=== PATIENT | male | born 1950 | race Asian ===

== ENCOUNTER 2018-02-10 19:08 | Inpatient (IN) | payer MEDICAID, MEDICARE ==
[~2018-02-10] VITALS: Ht 165.1 cm; Wt 88.9 kg
[2018-02-10] MEDS: NACL 0.9% 1,000 ML IV SCH (03:50)
--- NOTE | 2018-02-10 19:30 | NUR ---
PATIENT BIB BLS TO ER BED 3.
[2018-02-10 19:31] VITALS: BP 105/56
--- NOTE | 2018-02-10 19:32 | NUR ---
PATIENT IS A 67 Y/O MALE BIB BLS WHO PRESENTS TO THE ED C/O ALTERED MENTAL STATUS. PER [facility], PT WAS RECEIVING A BLOOD TRANSFUSION WHEN PT BECAME ALTERED AND STARTED SHIVERING. PT APPEARS TO BE IN 5/10 ACHING ABD PAIN THAT DOES NOT RADIATE. PT DENIES CP, SOB, DAUGHTER REPORTS DIARRHEA DENIES NAUSEA/VOMITING. PT AAOX3, RR EVEN/UNLABORED. PT REPOSITIONED FOR COMFORT, BED IN LOWEST POSITION. ER MD DR. AGUILAR NOTIFIED. WILL CONTINUE TO MONITOR. Addendum: 02/11/18 at 0117 by MEDDCV PATIENT IS A 67 Y/O MALE BIB BLS WHO PRESENTS TO THE ED C/O ALTERED MENTAL STATUS. PER [facility], PT WAS RECEIVING A BLOOD TRANSFUSION WHEN PT BECAME ALTERED AND STARTED SHIVERING. PT APPEARS TO BE IN 5/10 ACHING ABD PAIN THAT DOES NOT RADIATE. PT DIAPHORETIC. PT DENIES CP, SOB, DAUGHTER REPORTS DIARRHEA DENIES NAUSEA/VOMITING. PT AAOX3, RR EVEN/UNLABORED. PT REPOSITIONED FOR COMFORT, BED IN LOWEST POSITION. ER MD DR. AGUILAR NOTIFIED. WILL CONTINUE TO MONITOR.
[2018-02-10] MEDS ORDERED: TENO300T2 PO (19:45)
[2018-02-10] MEDS ORDERED: BISA5ECT43 PR (19:45)
[2018-02-10] MEDS ORDERED: PANT40EC PO (19:45)
[2018-02-10] MEDS ORDERED: SUCR1TAB35 PO (19:45)
[2018-02-10] MEDS ORDERED: ZYL300 PO (19:45)
[2018-02-10] MEDS ORDERED: BETH25TA47 PO (19:45)
[2018-02-10] MEDS ORDERED: TAMS0.4C96 PO (19:45)
[2018-02-10] MEDS ORDERED: NACL 0.9% 1,000 ML IV ONE ×3 (20:15→22:05)
--- NOTE | 2018-02-10 20:55 | NUR ---
communications tech at bedside.
[2018-02-10] MEDS ORDERED: VANCOMYCIN 1,000 MG in DEXTROSE 5% 250 ML IV ONE (21:10)
[2018-02-10] MEDS ORDERED: LEVOFLOXACIN 750 MG/D5W PREMIX 150 ML IV ONE (21:10)
[2018-02-10] MEDS ORDERED: VANCOMYCIN 1,000 MG VIAL ONE (21:14)
--- NOTE | 2018-02-10 21:32 | NUR ---
Dr. Burgos and RN at bedside for insertion of central line.
--- NOTE | 2018-02-10 22:00 | NUR ---
ACCOMPANIED PT TO CT WITH TECH.
--- NOTE | 2018-02-10 22:15 | NUR ---
NOTED RECTAL TEMP OF 95.2. PER DR. AGUILAR INITIATED AMANDA CHOE.
[2018-02-10 22:23] LABS: BASOPHILS # (AUTO) 0.6 K/uL (0.00-0.22); HEMATOCRIT 24.5 % (36-52); HEMOGLOBIN 7.7 g/dL (12.0-18.0); LYMPHOCYTES # (AUTO) 2.4 K/uL (2.0-11.5); MEAN CORPUSCULAR HEMOGLOBIN 29 pg (27-31); MEAN CORPUSCULAR HGB CONC 31 g/dL (33-37); MONOCYTES # (AUTO) 0.1 K/uL (0.8-1.0); NEUTROPHILS # (AUTO) 4.4 K/uL (1.8-7.7); PLATELET COUNT (AUTO) 32 K/uL (140-450); RED BLOOD CELL COUNT(AUTO) 2.64 MIL/uL (4.20-6.10); RED CELL DISTRIBUTION WIDTH 15.9 % (11.6-13.7); WHITE BLOOD COUNT (AUTO) 7.5 K/uL (4.8-10.8)
[2018-02-10 22:27] LABS: ALBUMIN 2.3 g/dL (3.4-5.0); ANION GAP 25.4 (8-16); CARBON DIOXIDE 13.6 mmol/L (21-32); CREATININE 2.3 mg/dL (0.7-1.3); TOTAL BILIRUBIN 0.7 mg/dL (0.0-1.0)
[2018-02-10] MEDS ORDERED: NOREPINEPHRINE 4 MG in DEXTROSE 5% 250 ML IV ONE (23:10)
[2018-02-10] MEDS ORDERED: PIPERACILLIN/TAZOBACTAM 3.375 GM in DEXTROSE 5% 50 ML IV ONE (23:20)
[2018-02-10] MEDS ORDERED: NOREPINEPHRINE 4 MG/4 ML VIAL IV ONE (23:21)
--- NOTE | 2018-02-10 23:30 | NUR ---
STARTED LEVOPHED AT 5MCG/MIN.
[2018-02-10] MEDS ORDERED: PIPERACILLIN/TAZOBACTAM 3.375 GM VIAL IV ONE (23:42)
[2018-02-10] MEDS ORDERED: ONDANSETRON 4 MG/2 ML VIAL IM/IVP PRN (23:45)
[2018-02-10] MEDS ORDERED: ACETAMINOPHEN 325 MG TAB PO PRN (23:45)
[2018-02-10] MEDS ORDERED: DOCUSATE SODIUM 100 MG GELCAP PO PRN (23:45)
[2018-02-10] MEDS ORDERED: HYDROcodone/APAP 7.5/325 MG 1 TAB PO PRN (23:45)
--- NOTE | 2018-02-10 23:55 | NUR ---
LEVOPHED INCREASED TO 7 MCG/MIN.
[2018-02-11] VITALS (99 sets, daily range): BP systolic 64–163; BP diastolic 20–108
--- NOTE | 2018-02-11 00:05 | NUR ---
LEVOPHED INCREASED TO 9MCG/MIN.
[2018-02-11 00:23] LABS: PROTHROMBIN TIME 12.7 secs (10.8-13.4)
--- NOTE | 2018-02-11 00:25 | NUR ---
LEVOPHED INCREASED TO 11 MCG/MIN.
--- NOTE | 2018-02-11 00:30 | NUR ---
LEVOPHED INCREASED TO 14 MCG/MIN.
--- NOTE | 2018-02-11 00:35 | NUR ---
LEVOPHED DECREASED TO 11 MCG/MIN.
--- NOTE | 2018-02-11 00:38 | NUR ---
Patient will be admitted to care of DR. COATES. Admited to ICU. Will go to room 2. Belongings list completed. Report to MASON RIVERA.
[2018-02-11 00:48] LABS: APPEARANCE,URINE TURBID (CLEAR); BILIRUBIN,URINE NEGATIVE (NEGATIVE); BLOOD, URINE 3+ (NEGATIVE); COLOR,URINE RED (YELLOW); LEUKOCYTE ESTERASE ,URINE 3+ (NEGATIVE); NITRITE, URINE NEGATIVE (NEGATIVE); UGLUCOSE NEGATIVE (NEGATIVE)
[2018-02-11 00:50] LABS: RBC,URINE TOO NUMEROUS TO COUN /HPF (0-5); WBC,URINE TOO MANY TO COUNT /HPF (0-5)
--- NOTE | 2018-02-11 01:00 | NUR ---
PT ARRIVED IN THE UNIT AT 0040 VIA GURNEY. PT AWAKE. ABLE TO FOLLOW SIMPLE COMMANDS. PT TEMPERATURE AT 95.0; PT CAME IN WITH BEAR HUGGER. LUNG SOUNDS CLEAR. PT ON OXYGEN AT 3L/MIN VIA NC. NO SIGNS OF DISTRESS NOTED. S1+S2 HEARD. PULSES ARE PALPABLE IN ALL EXTREMITIES. PT HAS LEVOPHED DRIP RUNNING AT 11MCG. ABDOMEN ROUND, SOFT AND NONDISTENDED. PT HAS DIAPER AND WAS SOILED. PT HAD A BM. NO URINE NOTED ON DIAPER. PT SKIN IS INTACT BUT HAS MULTIPLE BRUISES ALL OVER THE UPPER AND LOWER EXTREMITIES. PT HAS LEFT SUBCLAVIAN CENTRAL LINE. DRESSING WAS CHANGED. LINE PATENT, INTACT, AND ASYMPTOMATIC. BED AT LOW POSSIBLE POSITION. CALL LIGHT WITHIN REACH. ALL SAFETY PRECAUTIONS ARE IN PLACE.
[2018-02-11 01:03] LABS: MAGNESIUM 3.9 mg/dL (1.8-2.4); PHOSPHORUS 4.1 mg/dL (2.5-4.9); THYROID STIMULATING HORMONE 2.12 uIU/mL (0.34-3.74)
[2018-02-11] MEDS ORDERED: DEXTROSE 50% 50 ML SYR IVP PRN (01:05)
[2018-02-11] MEDS ORDERED: RIFAXIMIN 550 MG TAB PO SCH (01:10)
[2018-02-11] MEDS: LACTULOSE 20 GM/30 ML UDC PO SCH ×2 (01:10→08:51)
[2018-02-11] MEDS ORDERED: CRAN450C PO (01:21)
[2018-02-11] MEDS ORDERED: LACT1CAP72 PO (01:21)
[2018-02-11] MEDS ORDERED: IBRU140C PO (01:21)
[2018-02-11] MEDS ORDERED: ASCO500T93 PO (01:21)
--- NOTE | 2018-02-11 01:30 | NUR ---
FAMILY AT BEDSIDE, VERY CONCERNED AND ASKING HANDFUL OF QUESTIONS. DR. ARRIAGA AT BEDSIDE.
--- NOTE | 2018-02-11 01:35 | NUR ---
ASKED THE FAMILY OF PT FOR INFORMATION REGARDING PT'S HISTORY. PER DAUGHTER, SHE WOULD LIKE TO JUST GIVE THE INFORMATION LATER.
[2018-02-11] MEDS: MORPHINE SULFATE 2 MG/ML SYR IVP PRN ×2 (01:44→21:22)
--- NOTE | 2018-02-11 01:50 | NUR ---
ASKED THE PT'S DAUGHTER AGAIN REGARDING PROVIDING INFORMATION, PT'S DAUGHTER SAID "I DON'T WANNA DO THAT RIGHT NOW". EXPLAINED TO PT'S DAUGHTER THE IMPORTANCE OF HAVING THE HISTORY OF PT, BUT STILL REFUSE.
[2018-02-11 01:55] LABS: CHOL/HDL RATIO 4.1 (1-4.5)
[2018-02-11] MEDS ORDERED: ALBUTEROL SULFATE/IPRATROPIU 3 ML SOL IH PRN (02:05)
--- NOTE | 2018-02-11 02:30 | NUR ---
CALLED TO ASSIST ASHLEY GTZ AND DR. AGUILAR FOR INTUBATION. DR. AGUILAR INTUBATED WITH 7.5 E.T.T. AT 27CM LIP. BREATH SOUNDS EQUAL BUT DECREASED AT LEFT, PLACED PT ON VENTILATOR AC-14, VT 500, FIO2-100% PEER +5. POST CHEST X-RAY, REPOSITIONED E.T.T. TO 25CM@LIP, IMPROVED AERATION. SPUTUM WAS COLLECTED AND SENT. ABG WAS DONE AND RESULTS WERE CALLED IN TO DR. ARRIAGA
--- NOTE | 2018-02-11 02:30 | NUR ---
DR. AGUILAR SUCCESSFULLY INTUBATED PT AT BEDSIDE. WILL FOLLOW-UP WITH ANY OTHER ORDERS.
[2018-02-11] MEDS ORDERED: DIAZEPAM PFS 10 MG/2 ML SYR ONE (02:31)
[2018-02-11] MEDS ORDERED: DIAZEPAM PFS 10 MG/2 ML SYR IVP PRN (02:35)
[2018-02-11] MEDS ORDERED: DOBUTamine 500 MG/D5W PREMIX 250 ML IV SCH (02:35)
[2018-02-11] MEDS ORDERED: ETOMIDATE 20 MG/10 ML VIAL IVP ONE (02:45)
[2018-02-11] MEDS ORDERED: DIAZEPAM PFS 10 MG/2 ML SYR IVP ONE (02:45)
[2018-02-11] MEDS ORDERED: EPINEPHrine PFS 0.1 MG/ML SYR IVP ONE (02:45)
[2018-02-11] MEDS ORDERED: DOBUTamine 250 MG/D5W PREMIX 250 ML IV SCH (02:45)
[2018-02-11] MEDS ORDERED: SODIUM BICARBONATE 8.4% PFS 50 MEQ/50 ML SYR IVP ONE ×3 (02:45)
[2018-02-11] MEDS ORDERED: NOREPINEPHRINE 4 MG/4 ML VIAL IV ONE ×2 (03:50→19:59)
[2018-02-11] MEDS: NOREPINEPHRINE 8 MG in DEXTROSE 5% 250 ML IV PRN ×4 (03:59→20:48)
--- NOTE | 2018-02-11 04:15 | NUR ---
QUESADA CATHETER SUCCESSFULLY INSERTED. PT HAD VERY DARK TIFFANIE URINE, WITH SEDIMENTS AND HEMATURIA. WILL CONTINUE TO MONITOR PT FOR URINARY OUTPUT.
[2018-02-11] MEDS ORDERED: PHENYLEPHRINE 10 MG/ML VIAL ONE ×2 (05:12→05:13)
[2018-02-11] MEDS: PHENYLEPHRINE 40 MG in NACL 0.9% 250 ML IV PRN ×4 (05:16→22:05)
[2018-02-11] MEDS ORDERED: NACL 0.9% 1,000 ML IV ONE ×2 (06:00)
[2018-02-11] MEDS ORDERED: PIPERACILLIN/TAZOBACTAM 3.375 GM VIAL IV ONE (06:29)
[2018-02-11] MEDS ORDERED: VANCOMYCIN PER PHARMACY MC PRN (06:30)
--- NOTE | 2018-02-11 06:30 | NUR ---
DR. MAX AT BEDSIDE TO SEE PT. WILL FOLLOW-UP WITH ANY NEW ORDERS.
[2018-02-11] MEDS: PIPER/TAZO 3.375GM/D5W PREMIX 50 ML IV SCH ×3 (06:41→20:49)
[2018-02-11] MEDS ORDERED: HYDROCORTISONE NA SUCC 100 MG/2 ML VIAL ONE (06:55)
--- NOTE | 2018-02-11 06:55 | NUR ---
DR. COLBERT AT BEDSIDE TO SEE PT. INFORMED DR. COLBERT REGARDING PT'S CONDITION.
[2018-02-11] MEDS ORDERED: VANCOMYCIN 1GM/DEXT 5% PREMIX 200 ML IV SCH ×2 (07:00→22:00)
[2018-02-11] MEDS ORDERED: HYDROCORTISONE NA SUCC 100 MG/2 ML VIAL IV ONE (07:00)
[2018-02-11 07:07] LABS: RED CELL DISTRIBUTION WIDTH 15.7 % (11.6-13.7)
[2018-02-11] MEDS: BLOOD GLUCOSE MONITORING 1 DEV DEV FS SCH ×4 (07:17→21:05)
--- NOTE | 2018-02-11 07:17 | NUR ---
RECEIVED INTUBATED PT WITH 7.5 ETT SECURED @25 TEETH/GUMS ON VENT. SETTINGS AC 14, VT 500, PEEP 5 AND FIO2 100%. PT IS TACHYPNEIC AT THIS TIME. PT SUCTIONED OBTAINED SMALL AMOUNT OF THICK BLOODY SECRETIONS, AIRWAY IS PATENT AND ETT IS SECURE. ETT PLACEMENT CONFIRMED ON CXR AND BILATERAL B.S. VENT IS PLUGGED INTO RED OUTLET WITH ALARMS ON AND FUNCTIONING. WILL CONTINUE TO MONITOR.
[2018-02-11 07:20] LABS: MEAN CORPUSCULAR HEMOGLOBIN 31 pg (27-31); MEAN CORPUSCULAR HGB CONC 33 g/dL (33-37); MEAN CORPUSCULAR VOLUME 92.8 fL (80-94); RED BLOOD CELL COUNT(AUTO) 1.91 MIL/uL (4.20-6.10); WHITE BLOOD COUNT (AUTO) 5.8 K/uL (4.8-10.8)
--- NOTE | 2018-02-11 07:25 | NUR ---
REPORT GIVEN TO MORNING RN FOR CONTINUITY OF CARE. STILL MONITORING PT'S BLOOD PRESSURE.
[2018-02-11 07:37] LABS: ANION GAP 24.5 (8-16); CARBON DIOXIDE 14.2 mmol/L (21-32); CREATININE 2.4 mg/dL (0.7-1.3); POTASSIUM 3.7 mmol/L (3.5-5.1)
--- NOTE | 2018-02-11 07:40 | NUR ---
RECEIVED REPORT FROM NICOLE CUEVAS. PT IS INTUBATED. PT HAS BEAR HUGGER IN PLACE ON HIGHEST SETTING FOR HYPOTHERMIC TEMPERATURE. TEMP AT 0700 IS 97.3. PT IS NPO. PTS SKIN IS INTACT BUT HAS BRUISES AND PETECHIA ON UPPER AND LOWER EXTREMITIES. PT IS ON STANDARD PRECAUTION. PT IS NORMAL SINUS RHYTHM ON MONITOR. PT HAS AN OGT, POSITIVE PLACEMENT WAS CHECKED AND 60ML OF DARK BROWN RED FLUID RESIDUAL. PT HAS A QUESADA CATHETER PLACE WITH DARK RED URINE. PT HAS DOBUTAMINE RUNNING 10MCG/KG/MIN WITH ORDERS NOT TO TITRATE, LEVOPHED 30 MCG/KG/MIN (MAX), RANULFO-SYNEPHRINE RUNNING 150MCG/KG/MIN (MAX). ZERO CVP LINE, CURRENT READING IS 2. PT HAS FIXED PUPILS AND NOT RESPONSIVE. PTS ABDOMEN IS FIRM AND BOWEL SOUNDS ARE PRESENT IN ALL QUADRANTS. PT HAS WHEEZING IN LUNG ALL LOBES. PT HAS UPPER EXTREMITY SWELLING, NONPITTING. S1S2 HEARD AT APEX. PTS BED IS IN LOWEST POSITION WITH THE ALARM AND LOCK ON AND PT IS POSITIONED FOR COMFORT, SIDE RAILS ELEVATED. WILL CLOSELY MONITOR PT.
[2018-02-11 07:57] LABS: HEMATOCRIT 17.7 % (36-52); HEMOGLOBIN 5.8 g/dL (12.0-18.0)
[2018-02-11 07:58] LABS: PLATELET COUNT (AUTO) 13 K/uL (140-450)
--- NOTE | 2018-02-11 08:07 | NUR ---
PATIENT HAS BEEN SCREENED AND CATEGORIZED HIGH RISK. PATIENT WILL BE SEEN WITHIN 1-2 DAYS OF ADMISSION. 02/12- [address], [facility]
[2018-02-11] MEDS ORDERED: NACL 0.9% 1,000 ML IV SCH ×2 (08:10→14:05)
--- NOTE | 2018-02-11 08:21 | NUR ---
CALLED LAB FOR PACKED CELL TRANSFUSION SAID WILL CALL BACK US WHEN IT IS READY.
--- NOTE | 2018-02-11 08:40 | NUR ---
DR. COLBERT AND FAMILY AT BEDSIDE. PTS VITALS ARE: BP:81/34 WITH NS BOLUS GIVEN MAP 46 PULSE: 80 SPO2: 100% RESPIRATIONS: 22
[2018-02-11] MEDS ORDERED: VASOPRESSIN 20 UNITS in NACL 0.9% 250 ML IV SCH (08:50)
[2018-02-11] MEDS: LACTOBACILLUS RHAMNOSUS GG 1 EACH CAP PO SCH (08:51)
[2018-02-11] MEDS: TAMSULOSIN 0.4 MG CAP PO SCH (08:51)
[2018-02-11] MEDS: SUCRALFATE 1 GM TAB PO SCH ×4 (08:51→20:49)
[2018-02-11] MEDS: BETHANECHOL 25 MG TAB PO SCH ×3 (08:52→17:21)
[2018-02-11] MEDS: ALLOPURINOL 300 MG TAB PO SCH (08:52)
[2018-02-11] MEDS ORDERED: PANTOPRAZOLE 40 MG INJ VIAL IVP SCH ×2 (09:00→13:40)
[2018-02-11] MEDS ORDERED: PANTOPRAZOLE 40 MG TABEC PO SCH (09:00)
--- NOTE | 2018-02-11 09:00 | NUR ---
UPDATED REGARDING ABG RESULTS.
[2018-02-11] MEDS ORDERED: SODIUM BICARBONATE 8.4% PFS 50 MEQ/50 ML SYR IVP SCH ×2 (09:15→14:30)
[2018-02-11 09:58] LABS: LYMPHOCYTES % (MANUAL) 63 % (20-46); MONOCYTES % (MANUAL) 2 % (5-12)
[2018-02-11] MEDS: NACL 0.9% 1,000 ML IV SCH ×2 (10:07→17:58)
--- NOTE | 2018-02-11 10:30 | NUR ---
PT RESTING IN BED. T 98.4 HR 93 RR 28 SPO2 98 BP 84/56. HAS SPONTANEOUS EYES OPENING, NO WITHDRAWS TO PAIN. DR. COATES AND RESIDENT GROUP AT BEDSIDE. AND DAUGHTER AT BEDSIDE. UPDATED PT CONDITION TO FAMILY. WILL CONTINUE TO MONITOR.
--- NOTE | 2018-02-11 10:30 | NUR ---
SEEN BY DR. READ. UPDATED PT CONDITION. WILL FOLLOW UP ON ORDER.
[2018-02-11] MEDS: ALBUMIN HUMAN 25% 50 ML IV SCH ×2 (10:57→14:07)
[2018-02-11] MEDS ORDERED: SODIUM BICARBONATE 8.4% 150 MEQ in DEXTROSE 5% 1,000 ML IV SCH (11:00)
--- NOTE | 2018-02-11 11:20 | NUR ---
FIO2 DECREASED TO 90% PER ABG RESULTS. SPO2 REMAINS AT 99%. NURSE SHASHA DEMARCO.WILL CONTINUE TO MONITOR.
[2018-02-11] MEDS: HYDROCORTISONE NA SUCC 100 MG/2 ML VIAL IV SCH ×2 (12:24→18:04)
--- NOTE | 2018-02-11 12:39 | NUR ---
DR. CRUMP AND FILEMON AT BEDSIDE EVALUATING PT. NOTIFIED UNABLE TO START SODIUM BICARBONATE DUE TO NO IV ACCESS.
--- NOTE | 2018-02-11 12:40 | NUR ---
CORRECTIONS NURSE AT BEDSIDE.
--- NOTE | 2018-02-11 13:18 | NUR ---
BP 93/40 HR 96 RR 32 SPO2 99%. PT NOTED WITH LABORED BREATHING. PLATELET RUNNING. PT ON DRIP LEVOPHED, RANULFO-SYNEPHRINE, DOBUTAMIN CONTINUOUSLY. RT AT BEDSIDE EVALUATING PT . REPORT WRITER AT BEDSIDE. FAMILY AT BEDSIDE.
--- NOTE | 2018-02-11 13:36 | NUR ---
PT BLEEDING FROM MOUTH CALLED AND NOTIFIED DR. PRAHAM. ORDERED TO HOLD OGTUBE MEDS CARAFATE AND BETHANECHOL. WILL CONTINUE TO FOLLOW UP ON ORDER.
--- NOTE | 2018-02-11 13:44 | NUR ---
PT SUCTIONED OBTAINED MODERATE AMOUNT OF BLOODY SECRETIONS, AIRWAY IS PATENT AND ETT REMAINS SECURE. PT ORALLY SUCTIONED OF THIN BLOODY SECRETIONS. NURSE SHASHA MADE AWARE.
--- NOTE | 2018-02-11 13:52 | NUR ---
BP DROPPED TO 64/27, RR 34. CALLED DR. PARHAM. UPDATED PT BP AND LABORED BREATHING SAID WILL BE IN ICU SOON.
--- NOTE | 2018-02-11 14:03 | NUR ---
DR. PARHMA AT BEDSIDE EVALUATING PT. FAMILY AT BEDSIDE. PT ON BOLUS IV FLUID PER DR. DEJESUS.
--- NOTE | 2018-02-11 14:13 | NUR ---
RT AT BEDSIDE. DR. PARHAM AT BEDSIDE.
--- NOTE | 2018-02-11 14:18 | NUR ---
RADIOLOGY AT BEDSIDE FOR CHEST X -RAY.
--- NOTE | 2018-02-11 14:18 | NUR ---
BLOOD FOR ABG COLLECTED.
--- NOTE | 2018-02-11 14:24 | NUR ---
URINE FOR UA AND URINE CULTURE COLLECTED AND SENT TO THE LAB.
[2018-02-11] MEDS ORDERED: SODIUM BICARBONATE 8.4% 100 MEQ in NACL 0.9% 1,000 ML IV SCH (14:25)
[2018-02-11 14:47] LABS: MEAN CORPUSCULAR HEMOGLOBIN 32 pg (27-31); MEAN CORPUSCULAR HGB CONC 33 g/dL (33-37); PLATELET COUNT (AUTO) 43 K/uL (140-450); RED BLOOD CELL COUNT(AUTO) 1.68 MIL/uL (4.20-6.10); RED CELL DISTRIBUTION WIDTH 14.7 % (11.6-13.7); WHITE BLOOD COUNT (AUTO) 6.6 K/uL (4.8-10.8)
[2018-02-11 14:51] LABS: HEMATOCRIT 15.9 % (36-52); HEMOGLOBIN 5.3 g/dL (12.0-18.0)
--- NOTE | 2018-02-11 15:03 | NUR ---
BP 90/[address] MCCAULEY AND DR. COLBERT AT BEDSIDE EVALUATING PT. WILL CONTINUE TO FOLLOW UP ON ORDER.
--- NOTE | 2018-02-11 15:03 | NUR ---
FIO2 TITRATED TO 70% PER ABG RESULTS. WILL CONTINUE TO MONITOR.
--- NOTE | 2018-02-11 15:43 | NUR ---
BT STARTED. HR 95, RR 31, BP 116/45 SPO2 100%. LABORED BREATHING. HECTOR AT BEDSIDE FOR EKG. NO ACUTE RESPIRATORY DISTRESS NOTED. WILL CONTINUE TO MONITOR.
--- NOTE | 2018-02-11 15:43 | NUR ---
RT AT BEDSIDE FOR EKG.
[2018-02-11] MEDS ORDERED: LORATADINE 10 MG TAB NG SCH (16:00)
[2018-02-11] MEDS ORDERED: ACETAMINOPHEN EXTRA STRENGTH 500 MG TAB NG SCH (16:00)
[2018-02-11 16:13] LABS: LYMPHOCYTES % (MANUAL) 71 % (20-46); MONOCYTES % (MANUAL) 2 % (5-12)
--- NOTE | 2018-02-11 17:19 | NUR ---
PT SUCTIONED OBTAINED SMALL AMOUNT OF THICK BLOODY SECRETIONS, ETT REMAINS SECURE WITH A PATENT AIRWAY. FAMILY IS BEDSIDE. VENT ALARMS REMAIN ON AND FUNCTIONING.
[2018-02-11] MEDS ORDERED: PANTOPRAZOLE 40 MG INJ VIAL ONE (17:31)
[2018-02-11] MEDS: PANTOPRAZOLE 80 MG in NACL 0.9% 100 ML IV SCH (17:39)
--- NOTE | 2018-02-11 18:12 | NUR ---
PT RESTING IN BED. AFEBRILE. SPONTANEOUS EYES OPENING. NONVERBAL, ABLE TO MOVE LEFT ARM SLIGHTLY. CONTINUOUS ON LEVOPHED, RANULFO-SYNEPHRINE AND PITRESSIN DRIP. FAMILY AT BEDSIDE. WILL CONTINUE TO MONITOR.
--- NOTE | 2018-02-11 18:15 | NUR ---
RESIDENT PHYSICIAN, DR BOYKIN MADE AWARE THAT CRYOPRECIPITATE IS AVAILABLE IN THE LAB. WILL HOLD TRANSFUSION FOR NOW UNTIL THE RESULTS OF REPEAT CBC POST TRANSFUSION COMES BACK.
--- NOTE | 2018-02-11 19:24 | NUR ---
CHANGED PT ANCHOR FAST. PREVIOUS ANCHOR FAST WAS BLOODY
--- NOTE | 2018-02-11 19:25 | NUR ---
DECREASED FIO2 TO 60%. SATS 100%
--- NOTE | 2018-02-11 19:30 | NUR ---
ENDORSED TO NOC SHIFT RN FOR CONTINUITY OF CARE. PT ON STABLE CONDITION.
--- NOTE | 2018-02-11 19:30 | NUR ---
RECEIVED PT FROM AM NURSE. NO ACUTE DISTRESS. WILL CONTINUE TO OBSERVE.
--- NOTE | 2018-02-11 19:35 | NUR ---
PT ON VASPRESSORS FOR LOW BLOOD PRESSURE: LEVOPHED 26 MCG/MIN, NEOSYNEPHRINE @ 50 MCG/MIN VASOPRESSIN @ 0.01 UNITS/MIN ALL VIA CENTRAL LINE L SUBCLAVIAN. IV FLUID 0.9 NORMAL SALINE @ 120 ML/HR R FOREARM PERIPHERAL IV NA/BICARB @ 50 ML/HR. RUNNING INTO R FOREARM PERIPHERAL IV. WILL CONTINUE TO OBSERVE.
--- NOTE | 2018-02-11 19:40 | NUR ---
PT AWAKE SITTING UP IN BED, NO PURPOSEFUL MOVEMENT NOTED. 3+ PERRLA. ETT TO VENT CURRENT SETTINGS AC 70% FIO2 RR14 TV 500 PEEP 5. LUNGS DIMINISHED BREATH SOUNDS. SR ON MONITOR 90S. TRACE EDEMA NOTED. OGT IN PLACE DARK BROWN DRAINAGE NOTED. QUESADA CATH IN PLACE. LOW URINE OUTPUT DARK BROWNISH/RED NOTED. SKIN INTACT, BRUISING NOTED THROUGHOUT. SCDS IN PLACE. CENTRAL LINE L SUBCLAVIAN NOTED. WILL CONTINUE TO MONITOR.
[2018-02-11 20:06] LABS: MEAN CORPUSCULAR HEMOGLOBIN 32 pg (27-31); MEAN CORPUSCULAR HGB CONC 34 g/dL (33-37); MEAN CORPUSCULAR VOLUME 95.1 fL (80-94); PLATELET COUNT (AUTO) 49 K/uL (140-450); RED BLOOD CELL COUNT(AUTO) 1.81 MIL/uL (4.20-6.10); RED CELL DISTRIBUTION WIDTH 14.7 % (11.6-13.7); WHITE BLOOD COUNT (AUTO) 5.3 K/uL (4.8-10.8)
[2018-02-11 20:12] LABS: HEMATOCRIT 17.2 % (36-52); HEMOGLOBIN 5.8 g/dL (12.0-18.0)
--- NOTE | 2018-02-11 20:45 | NUR ---
INFORMED DR. MIRANDA (RESIDENT)AT 2039 THAT PATIENT'S HGB IS 5.8, HCT 17.2, PLT 49. PER DR. LIVINGSTON TO TRANSFUSE ONE MORE UNIT PRBC PER REPORT FROM ESTEFANY DAY SHIFT CHARGE NURSE. DR. MIRANDA WILL PUT IN THE ORDER, INFORMED DOCTOR ALSO THAT CURRENT TROPONIN IS 0.368 (LEVEL TRENDING DOWN). DR. LIVINGSTON CALLED BACK, INFORMED ABOUT THE HGB LEVEL AND THAT DR. MIRANDA WAS INFORMED ALREADY AND WILL PUT THE ORDER FOR ONE UNIT PRBC. DR. LIVINGSTON SAID TO TELL RESIDENT TO ORDER 3 UNITS PRBC INSTEAD OF ONE, DR. MIRANDA INFORMED IMMEDIATELY BUT STATED " NO, ONLY ONE UNIT".
--- NOTE | 2018-02-11 20:45 | NUR ---
PER DR. MIRANDA TO HOLD CRYOPRECIPITATE FOR NOW.
[2018-02-11] MEDS ORDERED: ACETAMINOPHEN EXTRA STRENGTH 500 MG TAB PO ONE (20:50)
--- NOTE | 2018-02-11 21:20 | NUR ---
SUCTIONED MOUTH, BLOOD TINGED DRAINAGED NOTED, TONGUE AND GUMS RED, BRUISING NOTED INSIDE MOUTH WELL. WILL MEDICATE FOR COMFORT, SEE EMAR FOR DETAILS.
--- NOTE | 2018-02-11 21:29 | NUR ---
PLACED ORAL AIRWAY IN PATIENTS MOUTH.PT BITING HIS TONGUE
[2018-02-11 21:38] LABS: LYMPHOCYTES % (MANUAL) 58 % (20-46); MONOCYTES % (MANUAL) 3 % (5-12)
--- NOTE | 2018-02-11 21:39 | NUR ---
NOTIFIED DR. BOYKIN OF PT STATUS, PT RIGID BITING TONGUE, BITE BLOCK IN PLACE. BLOOD NOTED INSIDE MOUTH, BRUISING AND REDNESS INSIDE MOUTH. ASKED ABOUT SEDATION, STATED DUE TO LABILE BLOOD PRESSURE, HOLDING OFF ON CONTINUOUS SEDATION @ THIS TIME. PRN IVPUSH MEDICATION AVAILABLE FOR NOW. WILL CONTINUE TO MONITOR.
--- NOTE | 2018-02-11 22:33 | NUR ---
MD @ BEDSIDE TALKING TO FAMILY REGARDING PLAN OF CARE AND CRITICAL CONDITION
--- NOTE | 2018-02-11 22:50 | NUR ---
PACKED RED BLOOD CELL 1 UNIT INFUSION STARTED.
--- NOTE | 2018-02-11 22:55 | NUR ---
PT HYPOTENSIVE, INCREASED LEVOPHED TO 30 MCG/MIN. FAMILY AND MD @ BEDSIDE. WILL CONTINUE TO OBSERVE.
--- NOTE | 2018-02-11 23:00 | NUR ---
INFORMED MD ABOUT BLOOD IN PT MOUTH. SUCTIONING BRIGHT RED BLOOD, MD AWARE. WILL CONTINUE TO MONITOR.
[2018-02-11] MEDS ORDERED: ACETAMINOPHEN 325 MG TAB PO ONE (23:05)
[2018-02-11] MEDS ORDERED: FUROSEMIDE 20 MG/2 ML VIAL IVP ONE (23:15)
--- NOTE | 2018-02-11 23:15 | NUR ---
PT BP STILL <90 MMHG, INCREASED NEOSYNEPHRINE TO 100MCG/MIN. WILL CONTINUE TO OBSERVE.
--- NOTE | 2018-02-11 23:18 | NUR ---
ATTEMPTED ABG. UNABLE TO GET IT. ASKED OTHER RT TO ATTEMPT
--- NOTE | 2018-02-11 23:30 | NUR ---
RT JENKINS ATTEMPTED ABG UNABLE TO GET DOCTOR AWARE
[2018-02-12] VITALS (97 sets, daily range): BP systolic 67–161; BP diastolic 25–88
--- NOTE | 2018-02-12 | NUR ---
PT CONTINUES TO HAVE RED DRAINAGE, COPIOUS AMOUNTS, MD AWARE. SUCTIONING FREQUENTLY. WILL CONTINUE TO OBSERVE.
--- NOTE | 2018-02-12 00:50 | NUR ---
PACKED RED BLOOD CELL INFUSION ENDED. NO S/S OF REACTION NOTED. WILL CONTINUE TO OBSERVE.
[2018-02-12] MEDS: HYDROCORTISONE NA SUCC 100 MG/2 ML VIAL IV SCH ×5 (01:19→23:29)
[2018-02-12] MEDS: MORPHINE SULFATE 2 MG/ML SYR IVP PRN ×3 (01:19→21:40)
--- NOTE | 2018-02-12 01:30 | NUR ---
CRYOPRECIPITATE BLOOD PRODUCT STARTED, WILL CONTINUE TO OBSERVE
[2018-02-12] MEDS: NOREPINEPHRINE 8 MG in DEXTROSE 5% 250 ML IV PRN ×5 (01:31→22:32)
[2018-02-12] MEDS ORDERED: PANTOPRAZOLE 40 MG INJ VIAL ONE ×2 (01:46→20:02)
[2018-02-12] MEDS: PANTOPRAZOLE 80 MG in NACL 0.9% 100 ML IV SCH ×3 (01:50→20:15)
--- NOTE | 2018-02-12 01:50 | NUR ---
CRYOPRECIPATATE INFUSION ENDED. NO S/S OF REACTION. WILL CONTINUE TO OBSERVE.
--- NOTE | 2018-02-12 04:15 | NUR ---
FFP INFUSION ENDED. NO REACTION NOTED. WILL CONTINUE TO OBSERVE. VASOPRESSIN NOW OFF. WILL CONTINUE TO MONITOR.
[2018-02-12] MEDS ORDERED: FUROSEMIDE 20 MG/2 ML VIAL IVP ONE (04:40)
[2018-02-12] MEDS: PHENYLEPHRINE 40 MG in NACL 0.9% 250 ML IV PRN ×4 (05:04→19:49)
[2018-02-12] MEDS: NACL 0.9% 1,000 ML IV SCH ×2 (05:05→10:38)
[2018-02-12 05:06] LABS: MEAN CORPUSCULAR HEMOGLOBIN 30 pg (27-31); MEAN CORPUSCULAR HGB CONC 32 g/dL (33-37); MEAN CORPUSCULAR VOLUME 94.1 fL (80-94); PLATELET COUNT (AUTO) 36 K/uL (140-450); RED BLOOD CELL COUNT(AUTO) 1.88 MIL/uL (4.20-6.10); RED CELL DISTRIBUTION WIDTH 14.2 % (11.6-13.7); WHITE BLOOD COUNT (AUTO) 8.2 K/uL (4.8-10.8)
[2018-02-12] MEDS: PIPER/TAZO 3.375GM/D5W PREMIX 50 ML IV SCH (05:07)
--- NOTE | 2018-02-12 05:13 | NUR ---
LOWERED FIO2 TO 60%. SXNED BRIGHT RED BLOOD FROM PTS MOUTH AND ETUBE
[2018-02-12 05:18] LABS: HEMATOCRIT 17.7 % (36-52); HEMOGLOBIN 5.7 g/dL (12.0-18.0)
[2018-02-12 05:28] LABS: LYMPHOCYTES % (MANUAL) 60 % (20-46); MONOCYTES % (MANUAL) 1 % (5-12)
--- NOTE | 2018-02-12 05:30 | NUR ---
PT CONTINUES TO HAVE BLOOD IN MOUTH, TONJA SUCTIONING RED DRAINAGE, PRBC INFUSING, PT ON LEVOPHED @ 30 MCG, NEOSYNEPHRINE @ 150 MCG WILL CONTINUE TO MONITOR.
[2018-02-12 05:40] LABS: MAGNESIUM 3.6 mg/dL (1.8-2.4); PHOSPHORUS 7.9 mg/dL (2.5-4.9)
[2018-02-12] MEDS: BLOOD GLUCOSE MONITORING 1 DEV DEV FS SCH ×4 (06:19→20:15)
--- NOTE | 2018-02-12 06:30 | NUR ---
PT BLOOD PRESSURE LABILE, WHEN TURNING REPOSITIONING BP WILL DECREASE. STILL RESPONDING TO VASOPRESSOR MEDICATIONS. CURRENT BP 118/51 HR 97 SR. WILL CONTINUE TO OBSERVE.
--- NOTE | 2018-02-12 06:49 | NUR ---
RECIVED PT ON VENT WITH SETTINGS CHARTED BREATH SOUNDS PRESENT BILAT RALES SXN MOD AMW RED BLOOD FROM MOUTH SXN ENDOTRACHEAL WITH MIN AMT OFF WHITE SECS AMBU BAG AT BEDSIDE VENT PLUGGED INTO RED OUTLET WILL CONT TO MONITOR PT ON VENT
--- NOTE | 2018-02-12 07:25 | NUR ---
ENDORSED CARE TO AM NURSE, PRBC INFUSION STILL RUNNING, RN MADE AWARE. NO ACUTE DISTRESS NOTED. WILL CONTINUE TO MONITOR.
--- NOTE | 2018-02-12 07:25 | NUR ---
RECEIVED REPORT FROM NOC SHIFT RN. PT RESTING IN BED. SR ON MONITOR. OPENS EYES UP ON CALLING, NONVERBAL, ABLE TO MOVE BOTH UPPER EXTREMITIES SLIGHTLY. SKIN WARM AND DRY, AFEBRILE. PUPILS SLIGHTLY REACTIVE TO LIGHT. OGT IN PLACE LOW TO INTERMITTENT SUCTION. FRESH BLOOD COMING FROM MOUTH, SUCTIONED AND ORAL CARE PROVIDED. PT ON ETT TO VENT AC 14 FIO2 60% TV 500 PEEP 5. LUNGS CLEAR ON AUSCULTATION. LEFT SUBCLAVIAN TRIPLE LUMEN CATH INTACT WITH GOOD BLOOD RETURNS. LEVOPHED RUNNING AT 30 MCG/MIN, RANULFO-SYNEPHRINE RUNNING AT 150 MCG/MIN, NS RUNNING AT 120 ML/HR, PRBC RUNNING AT 150 ML/HR. PERIPHERAL LINE ON RIGHT FOREARM WITH GOOD BLOOD RETURNS. SODIUM BICARBONATE RESUMED ON RIGHT PERIPHERAL LINE. MULTIPLE BRUISES NOTED ON BOTH UPPER AND LOWER EXTREMITIES. QUESADA'S CATH IN PLACE WITH MINIMAL AMOUNT OF HEMATURIA ON DRAINAGE BAG. SCDS IN PLACE. KEPT PT CLEAN AND DRY. HOB ELEVATED. BED IN LOW POSITION, LOCKED. WILL CONTINUE TO MONITOR.
--- NOTE | 2018-02-12 08:25 | NUR ---
FAMILY AT BEDSIDE.
--- NOTE | 2018-02-12 08:33 | NUR ---
DR. COLBERT AT BEDSIDE EVALUATING PT AND EXPLAINING PATIENT'S CONDITION TO THE DAUGHTER AND FAMILY.
[2018-02-12] MEDS: SUCRALFATE 1 GM TAB PO SCH ×4 (08:47→20:18)
[2018-02-12] MEDS: TAMSULOSIN 0.4 MG CAP PO SCH (08:48)
[2018-02-12] MEDS: LACTULOSE 20 GM/30 ML UDC PO SCH (08:48)
[2018-02-12] MEDS: LACTOBACILLUS RHAMNOSUS GG 1 EACH CAP PO SCH (08:48)
[2018-02-12] MEDS: BETHANECHOL 25 MG TAB PO SCH ×3 (08:49→17:20)
[2018-02-12] MEDS: ALLOPURINOL 300 MG TAB PO SCH (08:50)
--- NOTE | 2018-02-12 09:21 | NUR ---
DAUGHTER REQUESTED TO CALL DOCTOR REAGRDING MAKING DECISION FOR EXTUBATION. CALLED DR. COLBERT, SAID WILL BE HERE IN FEW MINUTES.
--- NOTE | 2018-02-12 10:08 | NUR ---
CATHETER CARE DONE. KEPT PT CLEAN AND DRY.
--- NOTE | 2018-02-12 10:09 | NUR ---
BP DROPPED DOWN TO 70/24. CALLED DR. COLBERT NOTIFIED PT BP SAID WILL BE IN ICU SOON.
--- NOTE | 2018-02-12 10:10 | NUR ---
AT CALLED LAB FOR CBC, BMP, CMP.
[2018-02-12] MEDS ORDERED: NACL 0.9% 1,000 ML IV ONE (10:15)
--- NOTE | 2018-02-12 10:36 | NUR ---
BLOOD SAMPLE TAKEN BY LAB.
--- NOTE | 2018-02-12 10:36 | NUR ---
BP 102/45. PT ON CONTINUOUS MONITORING.
[2018-02-12 11:09] LABS: BASOPHILS # (AUTO) 0.2 K/uL (0.00-0.22); BASOPHILS % (AUTO) 2.5 % (0.0-2.0); EOSINOPHILS # (AUTO) 0.1 K/uL (0-0.4); EOSINOPHILS % (AUTO) 0.9 % (0.0-4.0); LYMPHOCYTES # (AUTO) 1.9 K/uL (2.0-11.5); LYMPHOCYTES % (AUTO) 26.2 % (20.5-51.1); MEAN CORPUSCULAR HEMOGLOBIN 30 pg (27-31); MEAN CORPUSCULAR HGB CONC 33 g/dL (33-37); MEAN CORPUSCULAR VOLUME 91.5 fL (80-94); MONOCYTES # (AUTO) 0.2 K/uL (0.8-1.0); MONOCYTES % (AUTO) 2.3 % (1.7-9.3); NEUTROPHILS # (AUTO) 4.7 K/uL (1.8-7.7); NEUTROPHILS % (AUTO) 68.1 % (42.2-75.2); RED BLOOD CELL COUNT(AUTO) 1.99 MIL/uL (4.20-6.10); RED CELL DISTRIBUTION WIDTH 15.2 % (11.6-13.7); WHITE BLOOD COUNT (AUTO) 7.1 K/uL (4.8-10.8)
[2018-02-12 11:12] LABS: HEMATOCRIT 18.2 % (36-52); PLATELET COUNT (AUTO) 14 K/uL (140-450)
[2018-02-12] MEDS ORDERED: ACETAMINOPHEN EXTRA STRENGTH 500 MG TAB PO SCH ×3 (11:23→23:20)
[2018-02-12] MEDS ORDERED: LORATADINE 10 MG TAB PO SCH ×2 (11:24→13:48)
[2018-02-12 11:31] LABS: ALBUMIN 1.3 g/dL (3.4-5.0); CARBON DIOXIDE 13.6 mmol/L (21-32); POTASSIUM 5.6 mmol/L (3.5-5.1); TOTAL BILIRUBIN 1.3 mg/dL (0.0-1.0)
[2018-02-12 11:43] LABS: CREATININE 4.5 mg/dL (0.7-1.3)
--- NOTE | 2018-02-12 12:25 | NUR ---
PT SEEN BY DR. CRUMP. WILL FOLLOW UP ON ORDER.
--- NOTE | 2018-02-12 12:53 | NUR ---
FI02 DECREASED TO 50 RN SHASHA DEMARCO
[2018-02-12] MEDS: LEVOFLOXACIN 500 MG/D5W PREMIX 100 ML IV SCH (12:59)
--- NOTE | 2018-02-12 13:03 | NUR ---
HR 97, BP 113/52. RR 28. SPO2 100%. NO ACUTE RESPIRATORY DISTRESS NOTED. FAMILY AT BEDSIDE. WILL CONTINUE TO MONITOR.
--- NOTE | 2018-02-12 13:41 | NUR ---
CALLED DR. PALMA NOTIFIED THAT PT HAS EPISTAXIS. WILL CONTINUE TO FOLLOW UP ON ORDER.
[2018-02-12] MEDS ORDERED: METOLAZONE 5 MG TAB NG STA (14:11)
[2018-02-12] MEDS ORDERED: ALBUMIN HUMAN 25% 100 ML IV SCH (14:28)
--- NOTE | 2018-02-12 14:28 | NUR ---
CALLED LAB FOR HBG, HCT, PLATELET, PT/IT, FIBRINOGEN.
[2018-02-12] MEDS ORDERED: FUROSEMIDE 100 MG/10 ML VIAL IV SCH (14:29)
[2018-02-12] MEDS ORDERED: CHLOROTHIAZIDE SODIUM 500 MG VIAL IV SCH (14:30)
[2018-02-12 15:10] LABS: BASOPHILS # (AUTO) 0.5 K/uL (0.00-0.22); EOSINOPHILS % (AUTO) 0.2 % (0.0-4.0); LYMPHOCYTES # (AUTO) 1.6 K/uL (2.0-11.5); LYMPHOCYTES % (AUTO) 21.8 % (20.5-51.1); MEAN CORPUSCULAR HEMOGLOBIN 30 pg (27-31); MEAN CORPUSCULAR HGB CONC 34 g/dL (33-37); MEAN CORPUSCULAR VOLUME 88.4 fL (80-94); MONOCYTES # (AUTO) 0.4 K/uL (0.8-1.0); MONOCYTES % (AUTO) 4.9 % (1.7-9.3); NEUTROPHILS # (AUTO) 4.8 K/uL (1.8-7.7); NEUTROPHILS % (AUTO) 66.3 % (42.2-75.2); RED BLOOD CELL COUNT(AUTO) 2.27 MIL/uL (4.20-6.10); RED CELL DISTRIBUTION WIDTH 15.1 % (11.6-13.7); WHITE BLOOD COUNT (AUTO) 7.4 K/uL (4.8-10.8)
[2018-02-12 15:12] LABS: HEMATOCRIT 20.1 % (36-52); HEMOGLOBIN 6.8 g/dL (12.0-18.0); PLATELET COUNT (AUTO) 18 K/uL (140-450)
[2018-02-12 15:13] LABS: BASOPHILS % (AUTO) 6.8 % (0.0-2.0)
[2018-02-12] MEDS ORDERED: METOLAZONE 5 MG TAB NG SCH (15:28)
--- NOTE | 2018-02-12 15:34 | NUR ---
DECREASED FI02 TO .40 RN AWARE
--- NOTE | 2018-02-12 15:54 | NUR ---
DR. MAX AT BEDSIDE EVALUATING PT. EXPLAINING PT CONDITION TO FAMILY. WILL CONTINUE TO FOLLOW UP ORDER.
[2018-02-12 15:59] LABS: ALBUMIN 1.3 g/dL (3.4-5.0); ANION GAP 23.3 (8-16); CARBON DIOXIDE 14.9 mmol/L (21-32); POTASSIUM 5.2 mmol/L (3.5-5.1); TOTAL BILIRUBIN 1.4 mg/dL (0.0-1.0)
[2018-02-12 16:06] LABS: CREATININE 4.6 mg/dL (0.7-1.3)
[2018-02-12] MEDS: SODIUM BICARBONATE 8.4% 150 MEQ in DEXTROSE 5% 1,000 ML IV SCH (16:30)
--- NOTE | 2018-02-12 17:34 | NUR ---
HR 106, BP 119/53, RR 29, SPO2 100%. PT RESTING IN BED. NO ACUTE RESPIRATORY DISTRESS NOTED. ON CONTINUOUS LEVOPHED AND RANULFO-SYNOPHRINE DRIP. CENTRAL LINE DRESSING CHANGED. WILL CONTINUE TO MONITOR.
--- NOTE | 2018-02-12 17:38 | NUR ---
CONTINUED TO MONITOR PT ON VENT WITH SETTINGS CHARTED BREATH SOUNDS PRESENT BILAT MOSTLY CLEAR SXN PT ORALLY WITH MOD AMT BLOOD RED SECS ETT TUBE SECURE AMBU BAG AT BEDSIIDE VENT PLUGGED INTO RED OUTLET
--- NOTE | 2018-02-12 17:47 | NUR ---
PAGED DR. READ AND RECEIVED CALL. NOTIFIED THAT THERE IS NO URINE OUT PUT AFTER METOLAZONE AND LASIX GIVEN. ORDERED TO DISCONTINUE LASIX AND METOLAZONE. WILL FOLLOW UP ON ORDER.
--- NOTE | 2018-02-12 18:05 | NUR ---
CALLED LAB X2 FOR HBG, HCT, PT/ IT, FIBRINOGEN AFTER TRANSFUSION.
--- NOTE | 2018-02-12 19:19 | NUR ---
RECEIVED PT ON VENT SUPPORT AT DOCUMENTED SETTINGS, SUCTIONED LARGE AMOUNTS OF STACIE RED BLOOD, RESPIRATIONS DEEP AND LABORED, 7.5 ETT SECURED AT 25 CM AT THE TEETH/GUM, ALARMS SET AND AUDIBLE, VENT PLUGGED INTO RED OUTLET, CONT PULSE OX ON, AMBU BAG AT BEDSIDE, WILL CONT TO MONITOR.
--- NOTE | 2018-02-12 19:30 | NUR ---
ENDORSED TO NOC SHIFT RN FOR CONTINUITY OF CARE. PT ON STABLE CONDITION.
--- NOTE | 2018-02-12 19:30 | NUR ---
RECEIVED PT FROM TRISTON PULLIAM. PLAN OF CARE UPDATED. WILL CONTINUE TO MONITOR.
--- NOTE | 2018-02-12 19:35 | NUR ---
LEVOPHED @ 30 MCG/MIN, NEOSYNEPHRINE @ 150 MCG/MIN.
--- NOTE | 2018-02-12 19:40 | NUR ---
ENDORSED FROM DAY SHIFT, OPEN AREA SKIN BREAKDOWN ON R BUTTOCKS NOTED, WOUND CARE CONSULT TO EVALUATE, WILL CONTINUE TO OBSERVE.
--- NOTE | 2018-02-12 19:45 | NUR ---
PT AWAKE EYES OPEN SPONTANEOUSLY, MOVING R UPPER ARM. 3+ PERRLA. 7.5 ETT TO VENT AC 40% FIO2 R 14 TV 500 PEEP 5. RED DRAINAGE NOTED COMING FROM ORAL AREA. SR 90S ON MONITOR. +2 EDEMA NOTED TO PERIPHERAL EXTREMITIES. LUNGS DIMINISHED BREATH SOUNDS. OGT IN PLACE DARK BROWN FLUID NOTED. QUESADA CATH IN PLACE LITTLE TO NO OUTPUT FROM CATHETER. SKIN NON INTACT. OPEN AREA TO R BUTTOCKS NOTED BLANCHABLE REDNESS TO COCCYX AND LEFT BUTTOCKS. SCATTERED BRUISING THROUGHOUT BODY. VASOPRESORS INFUSING INTO L SUBCLAVIAN TRIPLE LUMEN CATHETER. WILL CONTINUE TO OBSERVE.
[2018-02-12] MEDS: LINEZOLID 600MG PREMIX 300 ML IV SCH (20:19)
[2018-02-12] MEDS: MEROPENEM 1,000 MG in NACL 0.9% 100 ML IV SCH (20:25)
--- NOTE | 2018-02-12 20:30 | NUR ---
FFP DONE INFUSING
--- NOTE | 2018-02-12 20:45 | NUR ---
SPOKE WITH DR. BOYKIN, UPDATED WITH PT STATUS AND CURRENT IV VASOPRESSOR DRIPS. CBC ORDERED POST FFP INFUSION. WILL CONTINUE TO MONITOR.
[2018-02-12 22:59] LABS: BASOPHILS # (AUTO) 0.1 K/uL (0.00-0.22); BASOPHILS % (AUTO) 0.9 % (0.0-2.0); LYMPHOCYTES # (AUTO) 2.5 K/uL (2.0-11.5); MEAN CORPUSCULAR HEMOGLOBIN 32 pg (27-31); MEAN CORPUSCULAR HGB CONC 35 g/dL (33-37); MONOCYTES # (AUTO) 0.1 K/uL (0.8-1.0); MONOCYTES % (AUTO) 1.7 % (1.7-9.3); NEUTROPHILS # (AUTO) 4.4 K/uL (1.8-7.7); NEUTROPHILS % (AUTO) 62.4 % (42.2-75.2); RED BLOOD CELL COUNT(AUTO) 1.45 MIL/uL (4.20-6.10); RED CELL DISTRIBUTION WIDTH 15.5 % (11.6-13.7); WHITE BLOOD COUNT (AUTO) 7.1 K/uL (4.8-10.8)
--- NOTE | 2018-02-12 23:00 | NUR ---
CRITICAL LABS HGB 4.[address] ASHUTOSH MD AWARE, BLOOD PRODUCTS ORDERED, SEE ORDER HISTORY FOR FURTHER DETAILS. WILL CONTINUE TO MONITOR.
[2018-02-12 23:07] LABS: HEMATOCRIT 13.2 % (36-52); HEMOGLOBIN 4.6 g/dL (12.0-18.0); PLATELET COUNT (AUTO) 11 K/uL (140-450)
[2018-02-12] MEDS ORDERED: ACETAMINOPHEN EXTRA STRENGTH 500 MG TAB PO ONE (23:10)
--- NOTE | 2018-02-12 23:55 | NUR ---
1 PACKED RED BLOOD CELL INFUSING, ORAL SUCTIONING COPIOUS AMOUNTS OF RED FLUID FROM ORAL AREA SINCE START OF SHIFT. NOTIFIED MD. INFORMED MD ABOUT PLATELETS, MD AWARE. NO NEW ORDERS GIVEN. WILL CONTINUE TO MONITOR.
[2018-02-13] VITALS (103 sets, daily range): BP systolic 89–158; BP diastolic 33–73
[2018-02-13] MEDS ORDERED: ACETAMINOPHEN EXTRA STRENGTH 500 MG TAB PO ONE (00:30)
--- NOTE | 2018-02-13 00:50 | NUR ---
PT AWAKE, EYES OPEN, PT HAS BEEN REACHING FOR ETT TUBE AND VENTILATOR WITH R UPPER ARM, VERBALLY REDIRECTED. PT BECOMING INCREASINGLY RESTLESS. WILL MEDICATE WITH ATIVAN PRN. WILL CONTINUE TO OBSERVE.
[2018-02-13] MEDS: LORazepam 2 MG/ML VIAL IM/IVP PRN ×2 (00:57→06:38)
[2018-02-13] MEDS: PHENYLEPHRINE 40 MG in NACL 0.9% 250 ML IV PRN ×2 (01:26→15:48)
--- NOTE | 2018-02-13 02:00 | NUR ---
2ND UNIT PRBC INFUSING. NO S/S OF DISTRESS NOTED. WILL CONTINUE TO OBSERVE.
--- NOTE | 2018-02-13 03:20 | NUR ---
CALLED LAB TO VERIFY IF PLATELETS AND OR FFP READY TO BE ISSUED. FASTENER TECHNOLOGIST STATED TO GIVE ANOTHER 15 MINS. WILL CONTINUE TO MONITOR.
--- NOTE | 2018-02-13 03:35 | NUR ---
2ND CALL TO VERIFY FFP AND PLATELETS, STATED TO GIVE ANOTHER 10 MINS. AWAITING BLOOD PRODUCTS. WILL CONTINUE TO MONITOR.
--- NOTE | 2018-02-13 03:38 | NUR ---
2ND UNIT PRBC DONE. CALLED LAB TO VERIFY IF PLATELETS OR FFP READY, ARACELI @ LAB STATED THEY ARE NOT READY YET, AWAITING CALL BACK TO GIVE OTHER BLOOD PRODUCTS.
--- NOTE | 2018-02-13 03:50 | NUR ---
CALLED TO UPDATE STATUS OF LAB, FFP/ PLATELETS ARE NOT READY. WILL CONTINUE TO MONITOR.
--- NOTE | 2018-02-13 04:25 | NUR ---
LAB @ BEDSIDE TO DRAW MORNING LABS EARLY PER MD REQUEST, TYPE AND SCREEN TO BE DRAWN WITH LABS
[2018-02-13] MEDS: MORPHINE SULFATE 2 MG/ML SYR IVP PRN ×2 (04:35→21:41)
[2018-02-13] MEDS: NOREPINEPHRINE 8 MG in DEXTROSE 5% 250 ML IV PRN (04:45)
--- NOTE | 2018-02-13 04:45 | NUR ---
AWAITING BLOOD PRODUCTS TO BE ISSUED FROM LAB. NO S/S OF DISTRESS NOTED. WILL CONTINUE TO OBSERVE.
[2018-02-13 04:53] LABS: BASOPHILS # (AUTO) 0.2 K/uL (0.00-0.22); BASOPHILS % (AUTO) 2.1 % (0.0-2.0); HEMOGLOBIN 7.6 g/dL (12.0-18.0); LYMPHOCYTES # (AUTO) 1.6 K/uL (2.0-11.5); LYMPHOCYTES % (AUTO) 21.1 % (20.5-51.1); MEAN CORPUSCULAR HEMOGLOBIN 30 pg (27-31); MEAN CORPUSCULAR HGB CONC 33 g/dL (33-37); MEAN CORPUSCULAR VOLUME 89.4 fL (80-94); MONOCYTES # (AUTO) 0.3 K/uL (0.8-1.0); MONOCYTES % (AUTO) 4.1 % (1.7-9.3); NEUTROPHILS # (AUTO) 5.5 K/uL (1.8-7.7); NEUTROPHILS % (AUTO) 72.7 % (42.2-75.2); RED BLOOD CELL COUNT(AUTO) 2.57 MIL/uL (4.20-6.10); RED CELL DISTRIBUTION WIDTH 16.9 % (11.6-13.7); WHITE BLOOD COUNT (AUTO) 7.6 K/uL (4.8-10.8)
[2018-02-13 05:54] LABS: PLATELET COUNT (AUTO) 9 K/uL (140-450)
--- NOTE | 2018-02-13 05:55 | NUR ---
FFP ISSUED, WILL START INFUSION PER PROTOCOL
[2018-02-13] MEDS: HYDROCORTISONE NA SUCC 100 MG/2 ML VIAL IV SCH ×3 (06:07→17:24)
[2018-02-13] MEDS: SODIUM BICARBONATE 8.4% 150 MEQ in DEXTROSE 5% 1,000 ML IV SCH ×3 (06:20→17:45)
[2018-02-13] MEDS: BLOOD GLUCOSE MONITORING 1 DEV DEV FS SCH ×4 (06:58→21:09)
--- NOTE | 2018-02-13 07:07 | NUR ---
RECEIVED INTUBATED PT WITH 7.5 ETT SECURED @25 TEETH/GUMS ON VENT. SETTINGS AC 14, VT 500, PEEP 5 AND FIO2 35%. PT IS TACHYPNEIC AT THIS TIME. PT SUCTIONED OBTAINED LARGE AMOUNT OF THICK BLOODY SECRETIONS, AIRWAY IS PATENT AND ETT IS SECURE. ETT PLACEMENT CONFIRMED ON MOST RECENT CXR AND BILATERAL B.S. VENT IS PLUGGED INTO RED OUTLET WITH ALARMS ON AND FUNCTIONING. WILL CONTINUE TO MONITOR.
--- NOTE | 2018-02-13 07:25 | NUR ---
RECEIVED REPORT FROM PRODUCT GRADER RN. PT IS LETHARGIC, NONVERBAL, DOES NOT OPEN EYES, DOES NOT FOLLOW SIMPLE COMMANDS. AFEBRILE, FLACC 0. A. FIB ON MONITOR. PT IS ETT TO VENT AC 14, FIO2 35%, TV 500, PEEP 5. LUNGS SOUND CLEAR UPON AUSCULTATION. OGT IN PLACE LOW TO INTERMITTENT SUCTION. PLACEMENT CONFIRMED. FRESH BLOOD COMING FROM MOUTH AND NOSE CONTINUOUSLY, SUCTIONED AND ORAL CARE PROVIDED. CENTRAL LINE AT LEFT SUBCLAVIAN TRIPLE LUMEN CATH ASYMPTOMATIC, PATENT AND INTACT. PT RECEIVING LEVOPHED AT 16 MCG/MIN, RANULFO-SYNEPHRINE AT 100 MCG/MIN, SODIUM BICARBONATE AT 120 ML/HR. PERIPHERAL LINE ON RIGHT FOREARM PATENT AND INTACT, RUNNING PROTONIX AT 8 ML/HR. MULTIPLE BRUISES NOTED ON BOTH UPPER AND LOWER EXTREMITIES. FOAM DRESSING TO BUTTOCKS CLEAN, DRY AND INTACT. QUESADA CATH IN PLACE, NO URINE NOTED. SCDS IN PLACE. SKIN IS DRY AND WARM TO TOUCH. NO ACUTE DISTRESS NOTED. HOB ELEVATED 30 DEGREES. BED IN LOW POSITION AND CALL LIGHT WITHIN REACH. WILL CONTINUE TO MONITOR.
--- NOTE | 2018-02-13 07:30 | NUR ---
ENDORSED CARE TO DAY SHIFT RN. ORDERS, POC UPDATED.
--- NOTE | 2018-02-13 07:45 | NUR ---
1ST UNIT OF PLATELET PHERESIS STARTED. VITAL SIGNS STABLE. WILL MONITOR ADVERSE REACTIONS.
--- NOTE | 2018-02-13 08:10 | NUR ---
DR. COATES AND RESIDENT PHYSICIAN DR. COLBERT IN TO SEE AND EXAMINE PT. WILL FOLLOW UP ON ORDERS.
[2018-02-13] MEDS: LINEZOLID 600MG PREMIX 300 ML IV SCH ×2 (08:34→21:14)
[2018-02-13] MEDS: TAMSULOSIN 0.4 MG CAP PO SCH (08:41)
[2018-02-13] MEDS: LACTOBACILLUS RHAMNOSUS GG 1 EACH CAP PO SCH (08:41)
[2018-02-13] MEDS: SUCRALFATE 1 GM TAB PO SCH ×4 (08:41→21:16)
[2018-02-13] MEDS: CALCIUM ACETATE 667 MG TAB PO SCH ×3 (08:42→17:08)
[2018-02-13] MEDS: BETHANECHOL 25 MG TAB PO SCH ×3 (08:43→17:08)
[2018-02-13] MEDS: PANTOPRAZOLE 80 MG in NACL 0.9% 100 ML IV SCH (08:56)
[2018-02-13] MEDS: MEROPENEM 1,000 MG in NACL 0.9% 100 ML IV SCH ×2 (08:58→21:15)
[2018-02-13] MEDS ORDERED: ALLOPURINOL 100 MG TAB PO SCH (09:00)
[2018-02-13] MEDS: LACTULOSE 20 GM/30 ML UDC PO SCH ×2 (09:00)
--- NOTE | 2018-02-13 09:10 | NUR ---
MEDICATIONS ADMINISTERED. PT TOLERATED WELL.
[2018-02-13 09:19] LABS: POTASSIUM 4.5 mmol/L (3.5-5.1)
[2018-02-13 09:20] LABS: ANION GAP 22.7 (8-16); CARBON DIOXIDE 15.8 mmol/L (21-32)
--- NOTE | 2018-02-13 09:24 | NUR ---
PT ORALLY SUCTIONED OBTAINED LARGE AMOUNT OF THIN BLOOD. NURSE BEDSIDE AND AWARE OF PT STATUS. ETT REMAINS SECURE. WILL CONTINUE TO MONITOR.
--- NOTE | 2018-02-13 09:25 | NUR ---
2ND UNIT OF PLATELET PHERESIS STARTED. WILL CONTINUE TO MONITOR.
[2018-02-13] MEDS ORDERED: PROBIOTIC SCREEN 1 EA MISC MC PRN (09:55)
[2018-02-13 09:56] LABS: MAGNESIUM 3.4 mg/dL (1.8-2.4); PHOSPHORUS 7.9 mg/dL (2.5-4.9)
--- NOTE | 2018-02-13 10:00 | NUR ---
FAMILY AT BEDSIDE. UPDATES GIVEN ON PT'S CONDITION.
--- NOTE | 2018-02-13 10:16 | NUR ---
DR. MAX IN TO SEE AND EXAMINE PT. WILL FOLLOW UP ON ORDERS.
[2018-02-13] MEDS ORDERED: CALCIUM GLUCONATE 10% 2,000 MG in NACL 0.9% 100 ML IV SCH ×2 (10:41→10:44)
[2018-02-13] MEDS ORDERED: MIDAZOLAM MDV 50 MG in NACL 0.9% 40 ML IV PRN (11:25)
--- NOTE | 2018-02-13 11:47 | NUR ---
VENT CHECK COMPLETED. PT SUCTIONED OBTAINED LARGE AMOUNT OF BLOODY SECRETIONS, AIRWAY IS PATENT AND ETT IS SECURE. WILL CONTINUE TO MONITOR.
[2018-02-13] MEDS ORDERED: MIDAZOLAM 2 MG/2 ML VIAL IV PRN (11:50)
--- NOTE | 2018-02-13 11:55 | NUR ---
PLATELET PHERESIS INFUSION COMPLETED. VITAL SIGNS STABLE.
--- NOTE | 2018-02-13 12:50 | NUR ---
PT SEEN AND EXAMINED BY DR. BABIN. WILL FOLLOW UP ON ORDERS.
--- NOTE | 2018-02-13 13:20 | NUR ---
DR. TONEY IN THE UNIT TO SEE AND EXAMINE PT, AND SPOKE WITH PT'S DAUGHTER. WILL FOLLOW UP WITH NEW ORDERS.
[2018-02-13 14:23] LABS: PROTHROMBIN TIME 14.2 secs (10.8-13.4)
[2018-02-13 14:32] LABS: MEAN CORPUSCULAR HEMOGLOBIN 31 pg (27-31); MEAN CORPUSCULAR HGB CONC 34 g/dL (33-37); MEAN CORPUSCULAR VOLUME 89.9 fL (80-94); PLATELET COUNT (AUTO) 81 K/uL (140-450); RED BLOOD CELL COUNT(AUTO) 1.35 MIL/uL (4.20-6.10); WHITE BLOOD COUNT (AUTO) 5.7 K/uL (4.8-10.8)
[2018-02-13 14:41] LABS: HEMATOCRIT 12.1 % (36-52); HEMOGLOBIN 4.1 g/dL (12.0-18.0)
[2018-02-13] MEDS ORDERED: LORATADINE 10 MG TAB PO SCH (14:45)
--- NOTE | 2018-02-13 14:46 | NUR ---
02/13/18 RD INITIAL ASSESSMENT COMPLETED PLEASE REFER TO NUTRITION ASSESSMENT UNDER CARE ACTIVITY FOR ESTIMATED NUTRITIONAL NEEDS. 1. CONTINUE NPO MEDICALLY NECESSARY PER MD 2. CONSIDER TPN FOR NUTRITION SUPPORT D/T CONTRAINDICATIONS TO TUBE FEEDING AT THIS TIME: FIRM/DISTENDED ABDOMEN, HYPOACTIVE BOWEL SOUNDS, DIARRHEA. --SHOULD ABOVE CONTRAINDICATIONS RESOLVE RD WILL PROVIDE TUBE FEEDING RECOMMENDATIONS 3. RD TO FOLLOW-UP 2-3 DAYS, HIGH RISK FINN BUCKLEY RD
[2018-02-13] MEDS ORDERED: ACETAMINOPHEN 325 MG TAB PO SCH (15:05)
[2018-02-13 15:08] LABS: D-DIMER 1120 ng/ml (0-400)
[2018-02-13 15:43] LABS: EOSINOPHILS % (MANUAL) 1 % (0-4); LYMPHOCYTES % (MANUAL) 19 % (20-46); MONOCYTES % (MANUAL) 2 % (5-12); PROMYELOCYTES % 1 % (0-0)
--- NOTE | 2018-02-13 16:05 | NUR ---
FIRST UNIT OF PRBC STARTED. NO ADVERSE REACTIONS NOTED. WILL CONTINUE TO MONITOR.
--- NOTE | 2018-02-13 16:57 | NUR ---
NO CHANGE OF CONDITION AT THIS TIME. VITAL SIGNS STABLE. STILL ON LEVOPHED AND RANULFO-SYNEPHRINE DRIPS. STILL RECEIVING PRBC. NO ADVERSE REACTIONS NOTED. SAFETY PRECAUTIONS IN PLACE.
--- NOTE | 2018-02-13 17:18 | NUR ---
VENT CHECK COMPLETED. PT REMAINS ON DOCUMENTED SETTINGS. PT SUCTIONED OBTAINED MODERATE AMOUNT OF THICK BLOODY SECRETIONS, ETT IS SECURE WITH A PATENT AIRWAY. VENT ALARMS REMAIN ON AND FUNCTIONING.
[2018-02-13] MEDS: NOREPINEPHRINE 8 MG in NACL 0.9% 250 ML IV PRN (17:29)
--- NOTE | 2018-02-13 18:30 | NUR ---
1ST UNIT OF PRBC COMPLETED. VITAL SIGNS STABLE. PER JOHNNY, WILL GIVE A CALL WHEN 2ND UNIT OF PRBC IS READY.
--- NOTE | 2018-02-13 18:37 | NUR ---
REPORTED COAGULATION LAB RESULTS TO DR. BABIN. ORDER RECEIVED.
--- NOTE | 2018-02-13 18:58 | NUR ---
RECEIVED PT ON VENT SUPPORT AT DOCUMENTED SETTINGS, SUCTIONING COPIOUS AMOUNTS OF THICK RED BLOOD, 7.5 ETT SECURED AT 25 CM AT THE TEETH/GUM, ALARMS SET AND AUDIBLE, AMBU BAG AT BEDSIDE, VENT PLUGGED INTO RED OUTLET, PULSE OX ON, FAMILY AT BEDSIDE, WILL CONTINUE TO MONITOR.
--- NOTE | 2018-02-13 19:30 | NUR ---
REPORT GIVEN TO DEVULCANIZER OPERATOR RN FOR CONTINUITY OF CARE. NO ACUTE DISTRESS NOTED AT THIS TIME.
--- NOTE | 2018-02-13 19:30 | NUR ---
REPORT RECEIVED FROM MORNING SHIFT RN. PT OPENS EYES OCCASIONALLY, NONVERBAL, UNABLE TO FOLLOW COMMANDS. PERRL. ETT 7.5 TAPED @25 AC 14, FIO2 35, TV 500, PEEP 5. BILATERAL LUNGS SOUND WITH CRACKLES. NOTED BRIGHT BLOOD COMING OUT OF THE MOUTH AND NOSE INTERMITTENTLY. MORNING NURSE STATED THAT PT HAS BEEN HAVING THE BLEEDING AND DOCTORS ARE AWARE. LEFT SUBCLAVIAN CENTRAL LINE WITH TRIPLE LUMEN. ALL PATENT AND ASYMPTOMATIC. LFA PERIPHERAL IV 22G PATENT AND ASYMPTOMATIC. BOWEL SOUNDS HYPOACTIVE. OGT CONNECTED TO LOW INTERMITTENT SUCTION WITH BLACKISH BLOOD IN THE COLLECTION CONTAINER. BILATERAL UPPER AND LOWER EXTREMITIES WITH DISCOLORATIONS NOTED. LFA OPEN SKIN DRESSING DRY AND INTACT. R BUTTOCK OPEN SKIN WITH DRESSING DRY AND INTACT. ON CONTINUOUS SET UP INSPECTOR AND AFIB NOTED. ON LEVOPHED AND RANULFO-SYNEPHRINE DRIPS. CAP REFILL WITHIN 3 SEC. AFEBRILE. FLACC 0. HOB ELEVATED TO 30 DEGREES. CALL LIGHT IN REACH. BED KEPT TO THE LOWEST. WILL CONTINUE TO MONITOR.
--- NOTE | 2018-02-13 19:40 | NUR ---
PT SEEN BY DR. ORTEGA. WILL FOLLOW UP ON ORDERS.
--- NOTE | 2018-02-13 20:20 | NUR ---
NOTED WITH PASTY LIQUID BLACK/DARK DROWN STOOL. ASSISTED WITH HYGIENE AND APPLIED NEW DRESSING TO THE BUTTOCK. WILL CONTINUE TO MONITOR.
--- NOTE | 2018-02-13 20:35 | NUR ---
2ND UNIT OUT OF 3 UNITS OF PRBC STARTED ORERED. WILL CONTINUE TO MONITOR S/E AND TOLERANCE.
--- NOTE | 2018-02-13 21:00 | NUR ---
FAMILY WANTS TO SPEAK TO PRIMARY MD. DR. ARRIAGA CAME AND SPOKE TO THE FAMILY AND ANSWERED ALL QUESTIONS.
[2018-02-13] MEDS: PANTOPRAZOLE 40 MG INJ VIAL IVP SCH (21:14)
[2018-02-13 21:20] LABS: FIBRINOGEN 212 mg/dL (200-400)
--- NOTE | 2018-02-13 21:30 | NUR ---
DR. AKERS IN TO SEE PT. WILL F/U WITH ANY ORDERS.
[2018-02-13 21:35] LABS: ANION GAP 20.4 (8-16); CARBON DIOXIDE 23.3 mmol/L (21-32); POTASSIUM 5.7 mmol/L (3.5-5.1)
[2018-02-13 21:36] LABS: CREATININE 5.2 mg/dL (0.7-1.3)
--- NOTE | 2018-02-13 22:24 | NUR ---
PT NOTED TO BE INCREASED IN AGITATION, FIGHTING THE VENT. VERSED ADMINISTERED ORDERED. WILL CONTINUE TO MONITOR.
--- NOTE | 2018-02-13 23:35 | NUR ---
2ND UNIT OF 3 PRBC COMPLETED WITHOUT S/E.
--- NOTE | 2018-02-13 23:45 | NUR ---
3RD UNIT OF 3 PRBC INFUSION STARTED WILL CONTINUE TO MONITOR.
[2018-02-14] VITALS (67 sets, daily range): BP systolic 82–157; BP diastolic 41–83
--- NOTE | 2018-02-14 | NUR ---
PT CONTINUES TO HAVE INTERMITTENT BRIGHT RED BLOOD COMING FROM NOSTRILS AND MOUTH. SUCTIONED AND CLEANED. WILL CONTINUE TO MONITOR.
[2018-02-14] MEDS: HYDROCORTISONE NA SUCC 100 MG/2 ML VIAL IV SCH ×3 (00:33→12:19)
[2018-02-14] MEDS ORDERED: MIDAZOLAM MDV 50 MG in NACL 0.9% 40 ML IV PRN (01:30)
--- NOTE | 2018-02-14 01:30 | NUR ---
PT NOTED INCREASED IN AGITATION AND FIGHTING THE VENT. REDIRECTION NOT EFFECTIVE. VERSED IVP NOT DUE YET. NOTIFIED DR. ARRIAGA. NEW ORDER RECEIVED. WILL FOLLOW UP WITH NEW ORDER.
[2018-02-14] MEDS ORDERED: MIDAZOLAM 2 MG/2 ML VIAL ONE ×2 (01:53→14:22)
--- NOTE | 2018-02-14 02:04 | NUR ---
VERSED 50MG DRIP NOT AVAILABLE IN THE FACILITY. NOTIFIED DR. ARRIAGA. DR. ARRIAGA ORDERED TO ADMINISTER VERSED IVP PRN. WILL CARRY OUT.
[2018-02-14] MEDS: MIDAZOLAM 2 MG/2 ML VIAL IV PRN ×3 (02:12→08:03)
--- NOTE | 2018-02-14 02:33 | NUR ---
PRBC TRANSFUSION COMPLETED WITH NO S/E. WILL START FFP TRANSFUSION ORDERED.
[2018-02-14] MEDS ORDERED: CALCIUM GLUCONATE 10% 1000 MG/10 ML VIAL IVP ONE (02:50)
--- NOTE | 2018-02-14 03:00 | NUR ---
1ST FFP TRANSFUSION STARTED. WILL CONTINUE TO MONITOR FOR S/E AND TOLERANCE.
[2018-02-14] MEDS: PHENYLEPHRINE 40 MG in NACL 0.9% 250 ML IV PRN (03:07)
[2018-02-14] MEDS: SODIUM BICARBONATE 8.4% 150 MEQ in DEXTROSE 5% 1,000 ML IV SCH (03:15)
--- NOTE | 2018-02-14 03:30 | NUR ---
PT HAD MODERATE AMOUNT OF PASTY LIQUID BLACK/BROWN STOOL. ASSISTED WITH HYGIENE AND NEW BUTTOCK OPTIFOAM DRESSING APPLIED. PT CONTINUES TO HAVE BRIGHT RED BLOOD COMING OUT OF BOTH NOSTRIL AND MOUTH INTERMITTENTLY. SUCTIONED AND CLEANED. CONTINUING W/ LEVOPHED AND RANULFO-SYNEPHRINE DRIPS WELL FFP TRANSFUSION. RR EVEN AND UNLABORED. AFEBRILE. FLACC 0. WILL CONTINUE TO MONITOR.
--- NOTE | 2018-02-14 05:15 | NUR ---
CRITICAL LAB CA=5.[address] ARRIAGA. AWAITING FOR CALL BACK.
--- NOTE | 2018-02-14 05:19 | NUR ---
CALL BACK RECEIVED FROM DR. ARRIAGA. NOTIFIED CRITICAL LAB RESULT. NEW ORDER RECEIVED. WILL CARRY OUT.
--- NOTE | 2018-02-14 06:00 | NUR ---
MORNING CARE, BED BATH, CATHETER CARE, INCONTINENCE CARE (MODERATE SOFT LIQUID BLACK/BROWN STOOL), ORAL CARE, PROVIDED. CENTRAL LINE DRESSING CHANGED AND BUTTOCKS OPTIFOAM DRESSING CHANGED.
[2018-02-14] MEDS: NOREPINEPHRINE 8 MG in NACL 0.9% 250 ML IV PRN (06:11)
[2018-02-14] MEDS ORDERED: CALCIUM GLUCONATE 10% 1000 MG/10 ML VIAL IVP SCH (06:15)
--- NOTE | 2018-02-14 06:15 | NUR ---
2ND UNIT OF FFP TRANSFUSION STARTED. WILL MONITOR S/E AND TOLERANCE.
--- NOTE | 2018-02-14 06:16 | NUR ---
RANULFO-SYNEPHRINE DRIP TITRATED DOWN TO ZERO DUE TO BZ=[phone]/[id number]. WILL CONTINUE TO MONITOR.
--- NOTE | 2018-02-14 06:50 | NUR ---
RECEIVED PT ON VENT SETTINGS DOCUMENTED. AC 500, RATE 14, PEEP 5, FIO2 35%. AMBU BAG AT BEDSIDE. VENT PLUGGED INTO RED OUTLET. NO TX INDICATED AT THIS TIME. ORALLY INTUBATED WITH ETT 7.5 AT 25 CM AT THE TEETH. RHONCHI BREATH SOUNDS, DID NOT RESOLVE WITH SUCTIONING. SUCTIONED PT - NO SECRETIONS. PATIENT BLEEDING FROM NOSE AND MOUTH.
[2018-02-14] MEDS: BLOOD GLUCOSE MONITORING 1 DEV DEV FS SCH ×2 (07:00→11:07)
--- NOTE | 2018-02-14 07:15 | NUR ---
DR. BABIN IN TO SEE PT. WILL FOLLOW UP WITH ANY ORDERS.
[2018-02-14] MEDS: INSULIN LISPRO SLIDING SCALE 100 UNITS/ML VIAL SUBQ PRN ×2 (07:17→11:08)
--- NOTE | 2018-02-14 07:24 | NUR ---
REPORT GIVEN TO MORNING SHIFT RN FOR CONTINUITY OF CARE. PT VS WITHOUT ACUTE DISTRESS. PT CONTINUES TO HAVE BRIGHT BLOOD COMING FROM BOTH NOSTRILS AND MOUTH INTERMITTENTLY. ANURIA. PT CURRENTLY ON LEVOPHED DRIP AND FFP TRANSFUSION INFUSING. AFEBRILE. FLACC 0. ALL SAFETY PRECAUTIONS ARE IN PLACE.
--- NOTE | 2018-02-14 07:25 | NUR ---
REPORT RECEIVED FROM RAFAEL RN AT BEDSIDE, PT OPENS EYES OCCASIONALLY, NONVERBAL, UNABLE TO FOLLOW COMMANDS. PERRL. ETT TO VENT WITH SETTING AC 14, FIO2 35, TV 500, PEEP 5. CLEAR LUNGS SOUND, BRIGHT BLOOD COMING OUT OF THE MOUTH AND NOSE INTERMITTENTLY NOTED, SUCTION WITH BRIGHT BLOOD NOTED. CENTRAL LINE TO LEFT SUBCLAVIAN, TLC, PATENT, RUNNING LEVOPHED AT 12MCG/MIN, FRESH FROZEN PLASMA AT 150ML/HR, PERIPHERAL IV LINE TO RIGHT FOREARM 22GA, PATENT RUNNING BICARB AT 120ML/HR. SR ON HUMAN RESOURCES HR GENERALIST, DISTENDED ABDOMEN WITH HYPOACTIVE BOWEL SOUNDS. OGT IN PLACE, CONNECTED TO LOW INTERMITTENT SUCTION WITH BLACKISH BLOOD NOTED. GENERALIZED EDEMA NOTED, SCROTAL SWELLING NOTED, OPEN WOUND PRESENT (SEE WOUND ASSESSMENT). SEVERE WEAKNESS TO RIGHT UPPER ARM AND BLE, QUESADA CATHETER IN PLACE WITH CLOUDY TIFFANIE COLORED URINE. FLACC 0. HOB ELEVATED TO 30 DEGREES, SAFETY MEASURES IN PLACE, WILL CONTINUE TO MONITOR.
--- NOTE | 2018-02-14 08:00 | NUR ---
ORAL CARE PROVIDED, SUCTION PROVIDED, STILL BRIGHT RED BLOOD COMING OUT OF MOUTH AND NOSE. MD MADE AWARE. POSITION CHANGED FOR OFF LOAD PRESSURE, SMALL AMOUNT OF BLACK LOOSE STOOL NOTED. MILY CARE PROVIDED.
[2018-02-14] MEDS: LACTULOSE 20 GM/30 ML UDC PO SCH (08:17)
[2018-02-14] MEDS: LACTOBACILLUS RHAMNOSUS GG 1 EACH CAP PO SCH (08:17)
[2018-02-14] MEDS: PANTOPRAZOLE 40 MG INJ VIAL IVP SCH (08:17)
[2018-02-14] MEDS: CALCIUM ACETATE 667 MG TAB PO SCH ×2 (08:17→12:19)
[2018-02-14] MEDS: SUCRALFATE 1 GM TAB PO SCH ×2 (08:17→12:19)
[2018-02-14] MEDS: MEROPENEM 1,000 MG in NACL 0.9% 100 ML IV SCH (08:18)
[2018-02-14] MEDS: LINEZOLID 600MG PREMIX 300 ML IV SCH (08:18)
--- NOTE | 2018-02-14 08:20 | NUR ---
2ND UNIT OF FRESH FROZEN PLASMA COMPLETED, PT TOLERATED WELL. VSS.
--- NOTE | 2018-02-14 09:00 | NUR ---
3 RD UNIT OF FRESH FROZEN PLASMA STARTED, PT'S FAMILY MEMBERS AT BEDSIDE.
--- NOTE | 2018-02-14 09:11 | NUR ---
PATIENT ASLEEP. NOT IN ANY NOTABLE DISTRESS AT THIS TIME. PATIENT CONTINUES TO BLEED OUT OF MOUTH AND NOSE. PATIENT TOLERATING VENT. VENT SETTINGS MAINTAINED DOCUMENTED. RN AT BEDSIDE. FAMILY AT BEDSIDE. WILL CONTINUE TO MONITOR.
--- NOTE | 2018-02-14 09:15 | NUR ---
SCHEDULED MEDICATION GIVEN VIA OGT, PT TOLERATED WELL.
--- NOTE | 2018-02-14 09:30 | NUR ---
CALLED TO BEDSIDE BY RN FOR PT DISTRESS. SUCTIONED LARGE AMOUNTS OF THICK BLOODY SECRETIONS THROUGH ETT. SUCTIONED PATIENTS NOSE AND MOUTH WELL. CLEANED PTS FACE WITH WASHCLOTH. PT CONTINUES TO BLEED OUT OF MOUTH AND NOSE. WILL CONTINUE TO MONITOR.
--- NOTE | 2018-02-14 09:55 | NUR ---
DR. BEY CAME TO SEE PATIENT AT BEDSIDE, NO NEW ORDER AT THIS TIME.
--- NOTE | 2018-02-14 10:45 | NUR ---
3RD UNITS OF FRESH FROZEN PLASMA COMPETED, PT TOLERATED WELL, NO ADVERSE EFFECTS NOTED.
--- NOTE | 2018-02-14 10:53 | NUR ---
INCREASED FIO2 TO 50% PER DR. MAX DUE TO PT O2 SATURATION AT 87%
--- NOTE | 2018-02-14 11:06 | NUR ---
DR. MAX CAME TO SEE PT AT BEDSIDE, WILL FOLLOW UP ORDERS.
--- NOTE | 2018-02-14 11:10 | NUR ---
VENT CHECK DONE. PT TOLERATING VENT SETTINGS. SUCTIONED LARGE AMOUNT OF BLOODY SECRETIONS. FAMILY AT BEDSIDE. DR. MAX AT BEDSIDE.
[2018-02-14] MEDS ORDERED: CALCIUM GLUCONATE 10% 1,000 MG in NACL 0.9% 50 ML IV SCH (11:11)
[2018-02-14 11:13] LABS: BASOPHILS % (AUTO) 1.3 % (0.0-2.0); LYMPHOCYTES # (AUTO) 0.6 K/uL (2.0-11.5); LYMPHOCYTES % (AUTO) 14.7 % (20.5-51.1); MEAN CORPUSCULAR HEMOGLOBIN 29 pg (27-31); MEAN CORPUSCULAR HGB CONC 34 g/dL (33-37); MONOCYTES # (AUTO) 0.1 K/uL (0.8-1.0); NEUTROPHILS # (AUTO) 3.1 K/uL (1.8-7.7); RED BLOOD CELL COUNT(AUTO) 1.76 MIL/uL (4.20-6.10); RED CELL DISTRIBUTION WIDTH 15.6 % (11.6-13.7); WHITE BLOOD COUNT (AUTO) 3.8 K/uL (4.8-10.8)
[2018-02-14 11:17] LABS: HEMATOCRIT 15.1 % (36-52); HEMOGLOBIN 5.1 g/dL (12.0-18.0); PLATELET COUNT (AUTO) 10 K/uL (140-450)
--- NOTE | 2018-02-14 11:30 | NUR ---
DR. MCKEE CAME IN TO SEE PT AT BEDSIDE, NO NEW ORDER AT THIS TIME.
--- NOTE | 2018-02-14 12:00 | NUR ---
DR. MELO CAME IN TO SEE PATIENT AT BEDSIDE, SPOKE TO PT'S FAMILY MEMBERS, PT'S FAMILY SIGNED MODIFIED CODE STATUS AT THIS TIME. PT IS STILL BLEEDING FROM NOSE AND MOUTH, VSS, WOUND CARE EVALUATION AT BEDSIDE, WOUND CARE PROVIDED, POSITION CHANGED FOR OFF LOAD PRESSURE.
[2018-02-14] MEDS: LEVOFLOXACIN 500 MG/D5W PREMIX 100 ML IV SCH (12:20)
--- NOTE | 2018-02-14 12:20 | NUR ---
WOUND CARE EVALUATION NOTE: COMPLETE SKIN ASSESSMENT DONE ON THIS 67 Y/O MALE ADMITTED TO [facility] WITH CHIEF COMPLAINTS OF FEVERS, CHILLS AND WEAKNESS. 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 ALL ABOVE INFORMATION WAS OBTAINED FROM THE ADMISSION H&P. PATIENT IS LETHARGIC AND OPENS EYES OCCASIONALLY BUT IS UNABLE TO FOLLOW COMMANDS. ETT TO VENT. BUE AND BLE EDAMA NOTED. SKIN IS TIGHT AND COOL TO TOUCH. CENTRAL LINE NOTED ON THE LEFT SUBCLAVIAN COVERED WITH CLEAN AND DRY DRESSING. QUESADA CATHETER IN PLACE. HEMATURIA NOTED. PATIENT NEEDS MAXIMUM ASSISTANCE IN TURNING. PLAN OF CARE AND PRESSURE PREVENTIVE MEASURES DISCUSSED WITH PRIMARY NURSE. INTEGUMENTARY: -ECCHYMOSIS NOTED TO THE CHEST AND BILATERAL UPPER AND LOWER EXTREMITIES -SKIN TEARS NOTED TO BILATERAL UPPER EXTREMITIES. SKIN TEAR ON THE LEFT ARM WITH MEASUREMENTS 2CM X 1.5 CM. SKIN TEAR ON THE RIGHT ARM WITH MEASUREMENTS 1.5CM X 2.5 CM. SKIN TEARS WITH SCANT SEROUS DRAINAGE. -SCROTAL EDEMA, SKIN INTACT -MOISTURE ASSOCIATED SKIN DAMAGE IN THE INTERGLUTEAL CLEFT RECOMMENDATIONS: -APPLY VERSATEL LAYER WOUND DRESSING ON SKIN TEARS THEN COVER WITH FOAM DRESSING. SECURE FOAM DRESSING WITH ROLLED GAUZE. CHANGE Q3-5 DAYS AND PRN WITH SOILING - CLEANSE INTERGLUTEAL AREA WITH REMEDY CLEANSING SPRAY. APPLY Z-GUARD DAILY OR AFTER EACH INCONTINENT EPISODE. - TURN AND REPOSITION PATIENT Q2H. ASSESS SKIN - OFFLOAD BILATERAL HEELS BY PLACING PILLOW UNDER CALVES AT ALL TIMES, UNLESS OTHERWISE CONTRAINDICATED -PRESSURE REDISTRIBUTION SURFACE THERAPY -KEEP SKIN CLEAN AND DRY AT ALL TIMES. RECOMMENDATIONS DISCUSSED WITH PRIMARY RN PLEASE CONTACT WOUND CARE NURSE FOR ANY QUESTIONS AND CHANGES IN SKIN CONDITION
[2018-02-14 12:23] LABS: ANION GAP 20.1 (8-16); CARBON DIOXIDE 24.1 mmol/L (21-32); POTASSIUM 4.2 mmol/L (3.5-5.1)
[2018-02-14] MEDS ORDERED: MORPHINE SULFATE 2 MG/ML SYR IVP PRN ×2 (12:30→13:25)
--- NOTE | 2018-02-14 13:00 | NUR ---
I met with Patient's , Daughter Adelaide Hurtado, and other family members at bed side. and daughter were comforting patient and praying with family at the time. Patient's daughter Adelaide Hurtado step out with these chart writer while her mother was talking to patient as he was getting medication to helping with pain. Patient's daughter Adelaide was struggling with feelings, tearful and upset about patient' critical condition hug me stating " I just dont' want him to suffer anymore". I listen to her and acknowledged her feeling of overwhelming sadness as she describe then to me. I process with her the sense of loss she is experiencing and validated her feelings; as she was describing the decisions made already by her mother and Adelaide in regards to Patient's arrangements when he passes. Adelaide stated that she had very little family here in . She explained that must of her family lives in [place] and that she has already made all calls needed to informed her family of patient's current conditions. Adelaide Stated that she and her mother have already talk to [facility] to make arrangements for Patient to be pickle pumper when he expires and for them to also prepare and make all arrangements for his . Per Adelaide one of her close friends is helping her with all that coordination so she can be here with here with father and mother during this difficult time. She stated that it is her mother's wish that her father's body reminds intact. Declined any organ donation and explained that the mortuary will take care of the body and all other arrangements. I suggested to Adelaide and her mother some supportive services for their grief and loss; she accepted information and resources provided and agreed to care of their mental health by making appointments when needed. Adelaide and her mother thank me for my assistance.
[2018-02-14] MEDS ORDERED: MORPHINE SULFATE 50 MG in NACL 0.9% 45 ML IV SCH (13:10)
--- NOTE | 2018-02-14 13:24 | NUR ---
VENT CHECK DONE. SUCTIONED MODERATE AMOUNT OF BLOODY SECRETIONS. MOUTH AND NOSE SUCTIONED. PT CONTINUES TO BLEED OUT OF MOUTH AND NOSE. PATIENT TOLERATING VENT SETTINGS AT THIS TIME.
[2018-02-14] MEDS ORDERED: MIDAZOLAM 2 MG/2 ML VIAL IV PRN (14:10)
--- NOTE | 2018-02-14 15:05 | NUR ---
PT IS EXTUBATED BY RT,
--- NOTE | 2018-02-14 15:25 | NUR ---
PT . DR. BOX PRONOUNCED THE .
--- NOTE | 2018-02-14 15:30 | NUR ---
CALLED TO ICU 2 AT 1500 TO EXTUBATE PATIENT. PATIENT EXTUBATED AT 1505. PATIENT PLACED ON 5L SIMPLE MASK. DR. BOX PRONOUNCED AT 1525. PATIENTS FAMILY AT BEDSIDE.
--- NOTE | 2018-02-14 15:40 | NUR ---
CALLED [facility], SPOKE TO [facility], THAT PT IS NOT GOING TO BE ON THEIR CASE, .
--- NOTE | 2018-02-14 15:42 | NUR ---
INFORMED TEACHER BALLET, ANTONIO, AND ADMITTINGMAMADOU THAT PT . Addendum: 02/15/18 at 1150 by Elaine Knight RN ANTONIO IS STAFF COORDINATOR, NOT TEACHER BALLET.
--- NOTE | 2018-02-14 16:15 | NUR ---
FINISHED STOCK INSPECTOR INFORMED PT'S , , OFFICER NAME IS LEYDI CHAMPAGNE.
[2018-02-14 16:46] LABS: MAGNESIUM 3.4 mg/dL (1.8-2.4)
[2018-02-14 16:47] LABS: PHOSPHORUS 7.9 mg/dL (2.5-4.9)
--- NOTE | 2018-02-14 19:05 | NUR ---
PT'S BODY RELEASED TO [facility] AND [facility]
== END 2018-02-14 19:05 | disposition expired | DRG 720 ==
LOC: MED 19:08 → MIC 02-11 00:24
PROVIDERS: ADMIT Family Medicine Sports Medicine; ATTEND Family Medicine Sports Medicine
PROC: 02HV33Z Insertion of Infusion Device into Superior Vena Cava, Percutaneous Approach (ICD-10-PCS; principal; 2018-02-11)
PROC: 5A1945Z Respiratory Ventilation, 24-96 Consecutive Hours (ICD-10-PCS; 2018-02-11)
PROC: 0BH17EZ Insertion of Endotracheal Airway into Trachea, Via Natural or Artificial Opening (ICD-10-PCS; 2018-02-11)
PROC: 30243N1 Transfusion of Nonautologous Red Blood Cells into Central Vein, Percutaneous Approach (ICD-10-PCS; 2018-02-11)
PROC: 30243R1 Transfusion of Nonautologous Platelets into Central Vein, Percutaneous Approach (ICD-10-PCS; 2018-02-11)
PROC: 30243L1 Transfusion of Nonautologous Fresh Plasma into Central Vein, Percutaneous Approach (ICD-10-PCS; 2018-02-12)
PROC: 30243M1 Transfusion of Nonautologous Plasma Cryoprecipitate into Central Vein, Percutaneous Approach (ICD-10-PCS; 2018-02-12)
PROC: 30243K1 Transfusion of Nonautologous Frozen Plasma into Central Vein, Percutaneous Approach (ICD-10-PCS; 2018-02-12)
PROC: 30243N1 Transfusion of Nonautologous Red Blood Cells into Central Vein, Percutaneous Approach (ICD-10-PCS; 2018-02-12)
PROC: 30243L1 Transfusion of Nonautologous Fresh Plasma into Central Vein, Percutaneous Approach (ICD-10-PCS; 2018-02-13)
PROC: 30243K1 Transfusion of Nonautologous Frozen Plasma into Central Vein, Percutaneous Approach (ICD-10-PCS; 2018-02-13)
PROC: 30243N1 Transfusion of Nonautologous Red Blood Cells into Central Vein, Percutaneous Approach (ICD-10-PCS; 2018-02-13)
PROC: 30243L1 Transfusion of Nonautologous Fresh Plasma into Central Vein, Percutaneous Approach (ICD-10-PCS; 2018-02-14)
PROC: 30243K1 Transfusion of Nonautologous Frozen Plasma into Central Vein, Percutaneous Approach (ICD-10-PCS; 2018-02-14)
DX: A41.9 Sepsis, unspecified organism (principal); N17.0 Acute kidney failure with tubular necrosis; D65 Disseminated intravascular coagulation [defibrination syndrome]; J96.01 Acute respiratory failure with hypoxia; R65.21 Severe sepsis with septic shock; K85.90 Acute pancreatitis without necrosis or infection, unspecified; J69.0 Pneumonitis due to inhalation of food and vomit; D61.818 Other pancytopenia; I46.9 Cardiac arrest, cause unspecified; I50.9 Heart failure, unspecified; E83.39 Other disorders of phosphorus metabolism; E83.41 Hypermagnesemia; Z66 Do not resuscitate; D68.59 Other primary thrombophilia; E86.0 Dehydration; E43 Unspecified severe protein-calorie malnutrition; D64.9 Anemia, unspecified; C88.0 Waldenstrom macroglobulinemia; N39.0 Urinary tract infection, site not specified; N18.9 Chronic kidney disease, unspecified; M10.9 Gout, unspecified; K59.00 Constipation, unspecified; F17.200 Nicotine dependence, unspecified, uncomplicated; E11.22 Type 2 diabetes mellitus with diabetic chronic kidney disease; D89.9 Disorder involving the immune mechanism, unspecified; I13.0 Hypertensive heart and chronic kidney disease with heart failure and stage 1 through stage 4 chronic kidney disease, or unspecified chronic kidney disease; C85.90 Non-Hodgkin lymphoma, unspecified, unspecified site; K92.2 Gastrointestinal hemorrhage, unspecified; E11.69 Type 2 diabetes mellitus with other specified complication; Z86.19 Personal history of other infectious and parasitic diseases; Z68.32 Body mass index [BMI] 32.0-32.9, adult; I69.351 Hemiplegia and hemiparesis following cerebral infarction affecting right dominant side; Z74.01 Bed confinement status
CPT/HCPCS: 36415; 36600; 71045; 71250; 76770; 80048; 80053; 80202; 81001; 82140; 82150; 82247; 82310; 82550; 82553; 82803; 82948; 83036; 83605; 83615; 83690; 83735; 83880; 84100; 84165; 84436; 84443; 84479; 84484; 85025; 85379; 85384; 85610; 85730; 86886; 86900; 86901; 86920; 87040; 87070; 87081; 87086; 87186; 87205; 93005; 93925; 93970; 94003; C1758; C9113; J0171; J0610; J1205; J1720; J1815; J1940; J1956; J2020; J2060; J2185; J2250; J2270; J2370; J2543; J3360; J3370; J3490; J7030; J7060; J7620; P9012; P9016; P9017; P9035; P9046; Q0092; Q0163